=== PATIENT | male | born 1985 | race American Indian/Alaskan Native ===

== ENCOUNTER 2017-11-16 17:35 | Inpatient (IN) | payer OTHER ==
[2017-11-16] MEDS ORDERED: Sodium Chloride 0.9% 10 ML Syringe FLUSH PRN (18:15)
[2017-11-16] MEDS ORDERED: Sodium Chloride 0.9% 1,000 ML IV STA (18:15)
[2017-11-16] MEDS ORDERED: Ondansetron 4 MG/2 ML SDV IVPUSH ONE (18:15)
[2017-11-16] MEDS ORDERED: HYDROmorphone 1 MG/ML Syringe IVPUSH ONE (18:17)
[2017-11-16] MEDS ORDERED: Famotidine 20 MG/2 ML SDV IVPUSH ONE (18:18)
--- NOTE | 2017-11-16 18:23 | EDM.PDOC ---
<Rao Miranda - Last Filed: 11/16/17 20:27> ED HPI GENERAL MEDICAL PROBLEM - General Chief Complaint: Abdominal Pain Stated Complaint: ABDOMINAL PAIN Time Seen by Provider: 11/16/17 18:12 - Related Data Allergies Allergy/AdvReac Type Severity Reaction Status Date / Time No Known Allergies Allergy Verified 11/17/17 03:30 Home Meds: Home Meds Amoxicillin/Clavulanate K [Augmentin 875-125 MG] 1 tab PO Q12HR 12 Days #24 tablet 11/19/17 [Rx] Course - Vital Signs Last Recorded V/S: Last Vital Signs Temp 97.5 F 11/19/17 09:27 Pulse 73 11/19/17 09:27 Resp 20 11/19/17 09:27 BP 139/87 11/19/17 09:27 Pulse Ox 94 L 11/19/17 09:27 - Orders/Labs/Meds Labs: Laboratory Tests 11/16/17 11/16/17 11/16/17 Range/Units 17:45 18:18 18:18 WBC 15.27 H (4.23-9.07) K/mm3 RBC 5.47 (4.63-6.08) M/mm3 Hgb 15.0 (13.7-17.5) gm/L Hct 44.9 (40.1-51.0) % MCV 82.1 (79.0-92.2) fl MCH 27.4 (25.7-32.2) pg MCHC 33.4 (32.2-35.5) g/dl RDW Std Deviation 42.2 (35.1-43.9) fL Plt Count 295 (163-337) K/mm3 MPV 9.7 (9.4-12.3) fl Neut % (Auto) 85.3 H (34.0-67.9) % Lymph % (Auto) 8.6 L (21.8-53.1) % [place] % (Auto) 5.8 (5.3-12.2) % Eos % (Auto) 0.1 L (0.8-7.0) Baso % (Auto) 0.1 (0.1-1.2) % Neut # (Auto) 13.01 H (1.78-5.38) K/mm3 Lymph # (Auto) 1.31 L (1.32-3.57) K/mm3 [place] # (Auto) 0.89 H (0.30-0.82) K/mm3 Eos # (Auto) 0.02 L (0.04-0.54) K/mm3 Baso # (Auto) 0.02 (0.01-0.08) K/mm3 Manual Slide Review Normal smear Sodium 140 (136-145) mEq/L Potassium 3.8 (3.5-5.1) mEq/L Chloride 101 (98-107) mEq/L Carbon Dioxide 27 (21-32) mEq/L Anion Gap 15.8 H (5-15) BUN 7 (7-18) mg/dL Creatinine 0.9 (0.7-1.3) mg/dL Est Cr Clr Drug Dosing 127.82 mL/min Estimated GFR (MDRD) > 60 (>60) mL/min BUN/Creatinine Ratio 7.8 L (14-18) Glucose 135 H (74-106) mg/dL Calcium 8.9 (8.5-10.1) mg/dL Total Bilirubin 0.4 (0.2-1.0) mg/dL AST 26 (15-37) U/L ALT 60 (16-63) U/L Alkaline Phosphatase 78 (46-116) U/L Troponin I < 0.017 (0.00-0.056) ng/mL Total Protein 8.4 H (6.4-8.2) g/dl Albumin 3.2 L (3.4-5.0) g/dl Globulin 5.2 gm/dL Albumin/Globulin Ratio 0.6 L (1-2) Lipase 105 (73-393) U/L Urine Color Yellow (Yellow) Urine Appearance Clear (Clear) Urine pH 8.5 H (5.0-8.0) Ur Specific [place] 1.020 (1.005-1.030) Urine Protein 3+ H (Negative) Urine Glucose (UA) Negative (Negative) Urine Ketones Negative (Negative) Urine Occult Blood Negative (Negative) Urine Nitrite Negative (Negative) Urine Bilirubin Negative (Negative) Urine Urobilinogen 0.2 (0.2-1.0) Ur Leukocyte Esterase Negative (Negative) Urine RBC 0-5 (0-5) /hpf Urine WBC 0-5 (0-5) /hpf Ur Epithelial Cells 0-5 (0-5) /hpf Urine Bacteria Few (FEW) /hpf Urine Mucus Few (FEW) /hpf Meds: Medications Discontinued Medications Generic Name Dose Route Start Last Admin Trade Name Bald[place] PRN Reason Stop Dose Admin Acetaminophen 650 mg 11/18/17 08:34 Tylenol PO Q4H PRN Pain (mild 1-3) Hydrocodone Bitart/Acetaminophen 1 tab 11/18/17 08:32 [place] 325-5 Mg PO Q4H PRN Pain (moderate 4-6) Hydrocodone Bitart/Acetaminophen 1 tab 11/18/17 08:36 [place] 325-10 Mg PO Q4H PRN Pain (severe 7-10) Amoxicillin/Clavulanate Potassium 1 tab 11/19/17 09:00 11/19/17 09:36 Augmentin 875 Mg/125 Mg PO 11/30/17 21:01 1 tab Q12HR SAMIR Administration Bupivacaine HCl Confirm 11/16/17 22:07 11/16/17 23:04 Marcaine 0.5% Administered 11/16/17 22:08 10 ml Dose Administration 30 ml .ROUTE .STK-MED ONE Diatrizoate Meglum/Diatrizoate Sod 90 ml 11/16/17 19:42 11/16/17 20:01 Gastrografin 37% PO 11/16/17 19:43 90 ml ONETIME ONE Administration Diphenhydramine HCl 25 mg 11/17/17 01:16 Benadryl IVPUSH Q6H PRN Pruritis Famotidine 20 mg 11/16/17 18:18 11/16/17 18:34 Pepcid IVPUSH 11/16/17 18:19 20 mg ONETIME ONE Administration Fentanyl Confirm 11/16/17 22:17 Sublimaze Administered 11/16/17 22:18 Dose 250 mcg .ROUTE .STK-MED ONE Fentanyl Confirm 11/17/17 00:22 Sublimaze Administered 11/17/17 00:23 Dose 100 mcg .ROUTE .STK-MED ONE Glycopyrrolate Confirm 11/17/17 00:26 Administered 11/17/17 00:27 Dose 1 mg .ROUTE .STK-MED ONE Heparin Sodium (Porcine) 5,000 units 11/17/17 20:00 11/19/17 12:01 Heparin Sodium SUBCUT Not Given Q8H SAMIR Hydromorphone HCl 1 mg 11/16/17 18:17 11/16/17 18:35 Dilaudid IVPUSH 11/16/17 18:18 1 mg ONETIME ONE Administration Hydromorphone HCl 0.5 mg 11/16/17 19:14 11/16/17 19:30 Dilaudid IVPUSH 11/16/17 19:15 0.5 mg ONETIME ONE Administration Hydromorphone HCl 0.5 mg 11/16/17 20:36 11/16/17 20:42 Dilaudid IVPUSH 11/16/17 20:37 0.5 mg ONETIME ONE Administration Hydromorphone HCl Confirm 11/16/17 23:14 Dilaudid Administered 11/16/17 23:15 Dose 0.5 mg .ROUTE .STK-MED ONE Hydromorphone HCl Confirm 11/16/17 23:14 Dilaudid Administered 11/16/17 23:15 Dose 0.5 mg .ROUTE .STK-MED ONE Hydromorphone HCl 0.5 mg 11/17/17 01:16 11/17/17 09:11 Dilaudid IVPUSH 11/17/17 01:17 Not Given ONETIME ONE Hydromorphone HCl 0.5 mg 11/17/17 01:26 Dilaudid IVPUSH Q2H PRN Pain Hydromorphone HCl 0.5 mg 11/18/17 08:32 Dilaudid IVPUSH ONETIME PRN Breakthrough pain Sodium Chloride 1,000 mls @ 1,000 mls/hr 11/16/17 18:15 11/16/17 18:33 Normal Saline IV 11/16/17 19:14 1,000 mls/hr .BOLUS STA Administration Piperacillin Sod/Tazobactam 100 mls @ 200 mls/hr 11/16/17 21:46 11/16/17 21: 57 Sod 4.5 gm/ Sodium Chloride IV 11/16/17 22:15 200 mls/hr ONETIME ONE Administration Ondansetron HCl 4 mg/ Sodium 52 mls @ 100 mls/hr 11/17/17 01:26 Chloride IV Q4H PRN Nausea Piperacillin Sod/Tazobactam 100 mls @ 25 mls/hr 11/17/17 06:00 11/19/17 05:48 Sod 4.5 gm/ Sodium Chloride IV 25 mls/hr Q8H SAMIR Administration Sodium Chloride 1,000 mls @ 125 mls/hr 11/17/17 01:30 11/18/17 01:10 Normal Saline IV 125 mls/hr ASDIRECTED SAMIR Administration Piperacillin Sod/Tazobactam 100 mls @ 200 mls/hr 11/17/17 02:00 11/17/17 09: 13 Sod 4.5 gm/ Sodium Chloride IV 11/17/17 03:00 Not Given Q8H SAMIR Metoprolol Tartrate 5 mg/ 55 mls @ 100 mls/hr 11/17/17 01:33 Sodium Chloride IV Q2H PRN Hypertension Potassium Chloride/Dextrose/Sod Cl 1,000 mls @ 100 mls/hr 11/18/17 08:45 08/31 03:59 D5 1/2 Ns W/ 20 Meq/L Kcl IV 100 mls/hr ASDIRECTED SAMIR Administration Iopamidol 125 ml 11/16/17 19:42 11/16/17 20:01 Isovue-300 (61%) IVPUSH 11/16/17 19:43 125 ml ONETIME ONE Administration Ketamine HCl Confirm 11/16/17 23:15 Ketalar Administered 11/16/17 23:16 Dose 500 mg .ROUTE .STK-MED ONE Lidocaine/Epinephrine Confirm 11/16/17 22:07 11/16/17 23:04 Xylocaine 1% With Epinephrine 1:100,000 Administered 11/16/17 22:08 10 ml Dose Administration 20 ml .ROUTE .STK-MED ONE Metoprolol Tartrate 5 mg 11/18/17 08:42 Lopressor IV Q2H PRN Hypertension Midazolam HCl Confirm 11/16/17 22:17 Versed 1 Mg/Ml Administered 11/16/17 22:18 Dose 2 mg .ROUTE .STK-MED ONE Neostigmine Methylsulfate Confirm 11/17/17 00:26 Neostigmine Administered 11/17/17 00:27 Dose 5 mg .ROUTE .STK-MED ONE Ondansetron HCl 4 mg 11/16/17 18:15 11/16/17 18:33 Zofran IVPUSH 11/16/17 18:16 4 mg ONETIME ONE Administration Ondansetron HCl 4 mg 11/16/17 19:18 11/16/17 19:30 Zofran Odt PO 11/16/17 19:19 4 mg ONETIME ONE Administration Ondansetron HCl 4 mg 11/17/17 01:16 Zofran IVPUSH ONETIME PRN Nausea/Vomiting Ondansetron HCl 4 mg 11/18/17 08:41 Zofran IV Q4H PRN Nausea Pneumococcal 13-Valent Conj Vacc 0.5 ml 11/19/17 10:48 Prevnar 13 IM 11/19/17 10:49 .ONCE ONE Pneumococcal Polyvalent Vaccine 0.5 ml 11/19/17 11:00 11/19/17 11:23 Pneumovax 23 IM 11/19/17 11:01 0.5 ml .ONCE ONE Administration Propofol Confirm 11/16/17 22:17 Diprivan 20 Ml Administered 11/16/17 22:18 Dose 400 mg .ROUTE .STK-MED ONE Rocuronium [place] Confirm 11/16/17 23:24 Zemuron Administered 11/16/17 23:25 Dose 50 mg .ROUTE .STK-MED ONE Sodium Chloride 10 ml 11/16/17 18:15 11/16/17 18:35 Saline Flush FLUSH 10 ml ASDIRECTED PRN Administration Keep Vein Open Sodium Chloride 10 ml 11/16/17 19:42 11/16/17 20:01 Saline Flush FLUSH 11/16/17 19:43 10 ml ONETIME ONE Administration - Radiology Interpretation CT Results Date: 11/16/17 (Reviewed the CT scan with radiologist atrophy read and describes a acute appendicitis. Measures 13 mm with some inflammatory changes, no abscess or free fluid. No other acute findings.) - Re-Assessments/Exams Free Text/Narrative Re-Assessment/Exam: 11/16/17 19:44 Took over the care of the patient at the change of shift. Patient describes having had onset of rapid gastric and periumbilical abdominal pain starting last evening. Didn't sleep through the night and tried some [place] plus without relief. Has had some vomiting today. No bloody vomiting or bloody emesis. 2 small normal bowel movements. His white count is elevated 15,000, his lipase is normal, LFTs are normal. Awaiting his CT scan. Patient has received IV fluids, Dilaudid and Zofran. His EKG was done earlier and showed sinus rhythm rate of 90 ID interval 177 ms converses 101 ms, no acute ischemic changes noted. Doubt acute coronary syndrome, seems less likely pulmonary etiology rule out for gastritis, biliary colic, cholecystitis, colitis. Free Text/Narrative Re-Assessment/Exam: 11/16/17 20:[address] scan results with the patient family and recommend surgery consult and/or operation. Discussed case with Dr. Henry abalone processor for general surgery and will be in to evaluate the patient. Patient will be otherwise kept nothing by mouth. Patient's pain is stable Departure - Departure Time of Disposition: 20:26 Disposition: DC/Tfer to [facility] Condition: Fair Clinical Impression: Abdominal pain Qualifiers: Abdominal location: generalized Qualified Code(s): R10.84 - Generalized abdominal pain Leukocytosis, unspecified Qualifiers: Leukocytosis type: other Qualified Code(s): D72.828 - Other elevated white blood cell count Acute appendicitis Qualifiers: Acute appendicitis type: with localized peritonitis Qualified Code(s): K35.3 - Acute appendicitis with localized peritonitis - Discharge Information <Heladio Marti - Last Filed: 11/19/17 19:01> ED HPI GENERAL MEDICAL PROBLEM - General Source of Information: Reports: Patient History Limitations: Reports: No Limitations - History of Present Illness INITIAL COMMENTS - FREE TEXT/NARRATIVE: The patient presents with abdominal pain. He says this started last night and it went away for a short time and came back this morning and now it is worse. He says the pain is in the mid to upper abdomen and it radiates to his chest. He has nausea and vomiting with it. He has no diarrhea or dysuria. He has no shortness of breath, fever or chills. He still has his appendix and gallbladder. Onset: Gradual Duration: Day(s): (Last night) Location: Reports: Abdomen Quality: Reports: Burning, Sharp Severity: Severe Improves with: Reports: None Worsens with: Reports: None Associated Symptoms: Reports: Nausea/Vomiting. Denies: Chest Pain, Cough, Fever /Chills, Headaches, Shortness of Breath Middle Abdomen Pain Score (Numeric/FACES): 9 ED ROS GENERAL - Review of Systems Review Of Systems: See Below Constitutional: Reports: No Symptoms HEENT: Reports: No Symptoms Respiratory: Reports: No Symptoms Cardiovascular: Reports: No Symptoms Endocrine: Reports: No Symptoms GI/Abdominal: Reports: Abdominal Pain, Nausea, Vomiting. Denies: Diarrhea : Reports: No Symptoms Musculoskeletal: Reports: No Symptoms Skin: Reports: No Symptoms ED EXAM, GI/ABD - Physical Exam Exam: See Below Exam Limited By: No Limitations General Appearance: Alert, No Apparent Distress Ears: Normal External Exam Nose: Normal Inspection Head: Atraumatic, Normocephalic Neck: Normal Inspection Respiratory/Chest: No Respiratory Distress, Lungs Clear, Normal Breath Sounds Cardiovascular: Regular Rate, Rhythm, No Edema, No Murmur GI/Abdominal Exam: Soft, No Organomegaly, No Mass, Tender (Moderate tenderness to the mid abdomen to the epigastric area) EKG INTERPRETATION EKG Date: 11/16/17 Time: 17:54 Rhythm: NSR Rate (Beats/Min): 90 [place]: Normal P-Wave: Present QRS: Normal ST-T: Normal QT: Normal Course - Vital Signs Last Recorded V/S: Last Vital Signs Temp 97.5 F 11/19/17 09:27 Pulse 73 11/19/17 09:27 Resp 20 11/19/17 09:27 BP 139/87 11/19/17 09:27 Pulse Ox 94 L 11/19/17 09:27 - Orders/Labs/Meds Labs: Laboratory Tests 11/16/17 11/16/17 11/16/17 Range/Units 17:45 18:18 18:18 WBC 15.27 H (4.23-9.07) K/mm3 RBC 5.47 (4.63-6.08) M/mm3 Hgb 15.0 (13.7-17.5) gm/L Hct 44.9 (40.1-51.0) % MCV 82.1 (79.0-92.2) fl MCH 27.4 (25.7-32.2) pg MCHC 33.4 (32.2-35.5) g/dl RDW Std Deviation 42.2 (35.1-43.9) fL Plt Count 295 (163-337) K/mm3 MPV 9.7 (9.4-12.3) fl Neut % (Auto) 85.3 H (34.0-67.9) % Lymph % (Auto) 8.6 L (21.8-53.1) % [place] % (Auto) 5.8 (5.3-12.2) % Eos % (Auto) 0.1 L (0.8-7.0) Baso % (Auto) 0.1 (0.1-1.2) % Neut # (Auto) 13.01 H (1.78-5.38) K/mm3 Lymph # (Auto) 1.31 L (1.32-3.57) K/mm3 [place] # (Auto) 0.89 H (0.30-0.82) K/mm3 Eos # (Auto) 0.02 L (0.04-0.54) K/mm3 Baso # (Auto) 0.02 (0.01-0.08) K/mm3 Manual Slide Review Normal smear Sodium 140 (136-145) mEq/L Potassium 3.8 (3.5-5.1) mEq/L Chloride 101 (98-107) mEq/L Carbon Dioxide 27 (21-32) mEq/L Anion Gap 15.8 H (5-15) BUN 7 (7-18) mg/dL Creatinine 0.9 (0.7-1.3) mg/dL Est Cr Clr Drug Dosing 127.82 mL/min Estimated GFR (MDRD) > 60 (>60) mL/min BUN/Creatinine Ratio 7.8 L (14-18) Glucose 135 H (74-106) mg/dL Calcium 8.9 (8.5-10.1) mg/dL Total Bilirubin 0.4 (0.2-1.0) mg/dL AST 26 (15-37) U/L ALT 60 (16-63) U/L Alkaline Phosphatase 78 (46-116) U/L Troponin I < 0.017 (0.00-0.056) ng/mL Total Protein 8.4 H (6.4-8.2) g/dl Albumin 3.2 L (3.4-5.0) g/dl Globulin 5.2 gm/dL Albumin/Globulin Ratio 0.6 L (1-2) Lipase 105 (73-393) U/L Urine Color Yellow (Yellow) Urine Appearance Clear (Clear) Urine pH 8.5 H (5.0-8.0) Ur Specific [place] 1.020 (1.005-1.030) Urine Protein 3+ H (Negative) Urine Glucose (UA) Negative (Negative) Urine Ketones Negative (Negative) Urine Occult Blood Negative (Negative) Urine Nitrite Negative (Negative) Urine Bilirubin Negative (Negative) Urine Urobilinogen 0.2 (0.2-1.0) Ur Leukocyte Esterase Negative (Negative) Urine RBC 0-5 (0-5) /hpf Urine WBC 0-5 (0-5) /hpf Ur Epithelial Cells 0-5 (0-5) /hpf Urine Bacteria Few (FEW) /hpf Urine Mucus Few (FEW) /hpf Meds: Medications Discontinued Medications Generic Name Dose Route Start Last Admin Trade Name Freq PRN Reason Stop Dose Admin Acetaminophen 650 mg 11/18/17 08:34 Tylenol PO Q4H PRN Pain (mild 1-3) Hydrocodone Bitart/Acetaminophen 1 tab 11/18/17 08:32 [place] 325-5 Mg PO Q4H PRN Pain (moderate 4-6) Hydrocodone Bitart/Acetaminophen 1 tab 11/18/17 08:36 [place] 325-10 Mg PO Q4H PRN Pain (severe 7-10) Amoxicillin/Clavulanate Potassium 1 tab 11/19/17 09:00 11/19/17 09:36 Augmentin 875 Mg/125 Mg PO 11/30/17 21:01 1 tab Q12HR SAMIR Administration Bupivacaine HCl Confirm 11/16/17 22:07 11/16/17 23:04 Marcaine 0.5% Administered 11/16/17 22:08 10 ml Dose Administration 30 ml .ROUTE .STK-MED ONE Diatrizoate Meglum/Diatrizoate Sod 90 ml 11/16/17 19:42 11/16/17 20:01 Gastrografin 37% PO 11/16/17 19:43 90 ml ONETIME ONE Administration Diphenhydramine HCl 25 mg 11/17/17 01:16 Benadryl IVPUSH Q6H PRN Pruritis Famotidine 20 mg 11/16/17 18:18 11/16/17 18:34 Pepcid IVPUSH 11/16/17 18:19 20 mg ONETIME ONE Administration Fentanyl Confirm 11/16/17 22:17 Sublimaze Administered 11/16/17 22:18 Dose 250 mcg .ROUTE .STK-MED ONE Fentanyl Confirm 11/17/17 00:22 Sublimaze Administered 11/17/17 00:23 Dose 100 mcg .ROUTE .STK-MED ONE Glycopyrrolate Confirm 11/17/17 00:26 Administered 11/17/17 00:27 Dose 1 mg .ROUTE .STK-MED ONE Heparin Sodium (Porcine) 5,000 units 11/17/17 20:00 11/19/17 12:01 Heparin Sodium SUBCUT Not Given Q8H SAMIR Hydromorphone HCl 1 mg 11/16/17 18:17 11/16/17 18:35 Dilaudid IVPUSH 11/16/17 18:18 1 mg ONETIME ONE Administration Hydromorphone HCl 0.5 mg 11/16/17 19:14 11/16/17 19:30 Dilaudid IVPUSH 11/16/17 19:15 0.5 mg ONETIME ONE Administration Hydromorphone HCl 0.5 mg 11/16/17 20:36 11/16/17 20:42 Dilaudid IVPUSH 11/16/17 20:37 0.5 mg ONETIME ONE Administration Hydromorphone HCl Confirm 11/16/17 23:14 Dilaudid Administered 11/16/17 23:15 Dose 0.5 mg .ROUTE .STK-MED ONE Hydromorphone HCl Confirm 11/16/17 23:14 Dilaudid Administered 11/16/17 23:15 Dose 0.5 mg .ROUTE .STK-MED ONE Hydromorphone HCl 0.5 mg 11/17/17 01:16 11/17/17 09:11 Dilaudid IVPUSH 11/17/17 01:17 Not Given ONETIME ONE Hydromorphone HCl 0.5 mg 11/17/17 01:26 Dilaudid IVPUSH Q2H PRN Pain Hydromorphone HCl 0.5 mg 11/18/17 08:32 Dilaudid IVPUSH ONETIME PRN Breakthrough pain Sodium Chloride 1,000 mls @ 1,000 mls/hr 11/16/17 18:15 11/16/17 18:33 Normal Saline IV 11/16/17 19:14 1,000 mls/hr .BOLUS STA Administration Piperacillin Sod/Tazobactam 100 mls @ 200 mls/hr 11/16/17 21:46 11/16/17 21: 57 Sod 4.5 gm/ Sodium Chloride IV 11/16/17 22:15 200 mls/hr ONETIME ONE Administration Ondansetron HCl 4 mg/ Sodium 52 mls @ 100 mls/hr 11/17/17 01:26 Chloride IV Q4H PRN Nausea Piperacillin Sod/Tazobactam 100 mls @ 25 mls/hr 11/17/17 06:00 11/19/17 05:48 Sod 4.5 gm/ Sodium Chloride IV 25 mls/hr Q8H SAMIR Administration Sodium Chloride 1,000 mls @ 125 mls/hr 11/17/17 01:30 11/18/17 01:10 Normal Saline IV 125 mls/hr ASDIRECTED SAMIR Administration Piperacillin Sod/Tazobactam 100 mls @ 200 mls/hr 11/17/17 02:00 11/17/17 09: 13 Sod 4.5 gm/ Sodium Chloride IV 11/17/17 03:00 Not Given Q8H SAMIR Metoprolol Tartrate 5 mg/ 55 mls @ 100 mls/hr 11/17/17 01:33 Sodium Chloride IV Q2H PRN Hypertension Potassium Chloride/Dextrose/Sod Cl 1,000 mls @ 100 mls/hr 11/18/17 08:45 08/31 03:59 D5 1/2 Ns W/ 20 Meq/L Kcl IV 100 mls/hr ASDIRECTED SAMIR Administration Iopamidol 125 ml 11/16/17 19:42 11/16/17 20:01 Isovue-300 (61%) IVPUSH 11/16/17 19:43 125 ml ONETIME ONE Administration Ketamine HCl Confirm 11/16/17 23:15 Ketalar Administered 11/16/17 23:16 Dose 500 mg .ROUTE .STK-MED ONE Lidocaine/Epinephrine Confirm 11/16/17 22:07 11/16/17 23:04 Xylocaine 1% With Epinephrine 1:100,000 Administered 11/16/17 22:08 10 ml Dose Administration 20 ml .ROUTE .STK-MED ONE Metoprolol Tartrate 5 mg 11/18/17 08:42 Lopressor IV Q2H PRN Hypertension Midazolam HCl Confirm 11/16/17 22:17 Versed 1 Mg/Ml Administered 11/16/17 22:18 Dose 2 mg .ROUTE .STK-MED ONE Neostigmine Methylsulfate Confirm 11/17/17 00:26 Neostigmine Administered 11/17/17 00:27 Dose 5 mg .ROUTE .STK-MED ONE Ondansetron HCl 4 mg 11/16/17 18:15 11/16/17 18:33 Zofran IVPUSH 11/16/17 18:16 4 mg ONETIME ONE Administration Ondansetron HCl 4 mg 11/16/17 19:18 11/16/17 19:30 Zofran Odt PO 11/16/17 19:19 4 mg ONETIME ONE Administration Ondansetron HCl 4 mg 11/17/17 01:16 Zofran IVPUSH ONETIME PRN Nausea/Vomiting Ondansetron HCl 4 mg 11/18/17 08:41 Zofran IV Q4H PRN Nausea Pneumococcal 13-Valent Conj Vacc 0.5 ml 11/19/17 10:48 Prevnar 13 IM 11/19/17 10:49 .ONCE ONE Pneumococcal Polyvalent Vaccine 0.5 ml 11/19/17 11:00 11/19/17 11:23 Pneumovax 23 IM 11/19/17 11:01 0.5 ml .ONCE ONE Administration Propofol Confirm 11/16/17 22:17 Diprivan 20 Ml Administered 11/16/17 22:18 Dose 400 mg .ROUTE .STK-MED ONE Rocuronium [place] Confirm 11/16/17 23:24 Zemuron Administered 11/16/17 23:25 Dose 50 mg .ROUTE .STK-MED ONE Sodium Chloride 10 ml 11/16/17 18:15 11/16/17 18:35 Saline Flush FLUSH 10 ml ASDIRECTED PRN Administration Keep Vein Open Sodium Chloride 10 ml 11/16/17 19:42 11/16/17 20:01 Saline Flush FLUSH 11/16/17 19:43 10 ml ONETIME ONE Administration - Re-Assessments/Exams Free Text/Narrative Re-Assessment/Exam: 11/16/17 18:24 I ordered an IV NS 1L bolus, zofran 4mg IV, dilaudid 1mg IV, labs, UA and a CT of his abdomen and pelvis. 11/16/17 19:18 His EKG shows a NSR with no acute changes. His WBC was elevated to 15. His CMP looks good. His troponin is negative. His UA shows no UTI. I am awaiting the CT of his abdomen. It is change of shift. Dr Miranda will be taking over.
[2017-11-16] MEDS ORDERED: HYDROmorphone 0.5 MG/0.5 ML SYRINGE IVPUSH ONE ×2 (19:14→20:36)
[2017-11-16] MEDS ORDERED: Ondansetron 4 MG Tab.DIS PO ONE (19:18)
[2017-11-16] MEDS ORDERED: Diatrizoate Meglumine/Diatrizoate Sodium 37% 120 ML Bottle PO ONE (19:42)
[2017-11-16] MEDS ORDERED: Iopamidol 612 MG/ML 150 ML Bottle IVPUSH ONE (19:42)
[2017-11-16] MEDS ORDERED: Sodium Chloride 0.9% 10 ML Syringe FLUSH ONE (19:42)
[2017-11-16] MEDS ORDERED: Piperacillin/Tazobactam 4.5 GM in Sodium Chloride 0.9% 100 ML IV ONE (21:46)
--- NOTE | 2017-11-16 21:49 | PCM.HP ---
H&P History of Present Illness - General Date of Service: 11/16/17 Admit Problem/Dx: acute appendicitis - History of Present Illness Initial Comments - Free Text/Narative: 32 yo male, h/o morbid obesity, presents with abdominal pain for the past 24 hours, which started about 24 hours ago. Pain was located in the mid-abdomen, and it has remained in the mid-abdomen. He also had multiple episodes of nausea/ emesis. No prior episode of pain. No prior abdominal surgeries. Denies fevers/chills. No diarrhea/constipation. In the ER, the patient received multiple doses of IV Dilaudid, Zofran, and a NS bolus. Middle Abdomen Pain Score (Numeric/FACES): 9 - Related Data Allergies/Adverse Reactions: Allergies Allergy/AdvReac Type Severity Reaction Status Date / Time No Known Allergies Allergy Verified 11/16/17 18:13 Home Medications: Home Meds . [No Known Home Meds] 11/16/17 [History] Past Medical History Endocrine/Metabolic History: Reports: Obesity/BMI 30+ (Severe obesity (BMI 56)) - Past Surgical History Head Surgeries/Procedures: Reports: None Social & Family History - Family History Endocrine/Metabolic: Reports: Diabetes, type II (Father) - Tobacco Use Smoking Status *Q: Current Every Day Smoker (5 cigarettes/week) Years of Tobacco use: 14 Packs/Tins Daily: 1 - Caffeine Use Caffeine Use: Reports: Coffee - Alcohol Use Alcohol Use History: Yes Total Drinks Per Week Comment: 7 drinks/week - Recreational Drug Use Recreational Drug Use: No - Living Situation & Occupation Living situation: Reports: with Significant Other (has girlfriend), with Family (Lives with his children.) H&P Review of Systems - Review of Systems: Review Of Systems: See Below General: Reports: No Symptoms HEENT: Reports: No Symptoms Pulmonary: Reports: No Symptoms Cardiovascular: Reports: No Symptoms Genitourinary: Reports: No Symptoms Musculoskeletal: Reports: No Symptoms Skin: Reports: No Symptoms Psychiatric: Reports: No Symptoms Neurological: Reports: No Symptoms Hematologic/Lymphatic: Reports: No Symptoms. Denies: Easy Bleeding, Easy Bruising Immunologic: Reports: No Symptoms Exam - Exam Exam: See Below - Vital Signs Vital Signs: Last Vital Signs Temp 37.0 C 11/16/17 18:20 Pulse 90 11/16/17 18:20 Resp 40 H 11/16/17 18:20 BP 164/92 H 11/16/17 18:20 Pulse Ox 93 L 11/16/17 18:20 Weight: 181.437 kg - Exam General: Alert, Oriented, Cooperative, Lethargic (Slightly lethargic and was falling asleep during clinical interview.), Other (OBESE.) HEENT: Conjunctiva Clear, Hearing Intact Neck: Supple, Trachea Midline, Other (Thick neck) Lungs: Clear to Auscultation, Normal Respiratory Effort Cardiovascular: Regular Rate, Regular Rhythm, Normal S1, Normal S2. No: Systolic Murmur GI/Abdominal Exam: Soft, Tender (Tender to the mid-abdomen.), Other (severely obese.) Extremities: Normal Inspection Skin: Warm, Dry, Intact Neuro Extensive - Mental Status: Alert, Normal Mood/Affect, Normal Cognition, Memory Intact Psychiatric: Alert, Normal Affect, Normal Mood - Patient Data Lab Results Last 24 hrs: Laboratory Results - last 24 hr 11/16/17 11/16/17 11/16/17 Range/Units 17:45 18:18 18:18 WBC 15.27 H (4.23-9.07) K/mm3 RBC 5.47 (4.63-6.08) M/mm3 Hgb 15.0 (13.7-17.5) gm/L Hct 44.9 (40.1-51.0) % MCV 82.1 (79.0-92.2) fl MCH 27.4 (25.7-32.2) pg MCHC 33.4 (32.2-35.5) g/dl RDW Std Deviation 42.2 (35.1-43.9) fL Plt Count 295 (163-337) K/mm3 MPV 9.7 (9.4-12.3) fl Neut % (Auto) 85.3 H (34.0-67.9) % Lymph % (Auto) 8.6 L (21.8-53.1) % [place] % (Auto) 5.8 (5.3-12.2) % Eos % (Auto) 0.1 L (0.8-7.0) Baso % (Auto) 0.1 (0.1-1.2) % Neut # (Auto) 13.01 H (1.78-5.38) K/mm3 Lymph # (Auto) 1.31 L (1.32-3.57) K/mm3 [place] # (Auto) 0.89 H (0.30-0.82) K/mm3 Eos # (Auto) 0.02 L (0.04-0.54) K/mm3 Baso # (Auto) 0.02 (0.01-0.08) K/mm3 Manual Slide Review Normal smear Sodium 140 (136-145) mEq/L Potassium 3.8 (3.5-5.1) mEq/L Chloride 101 (98-107) mEq/L Carbon Dioxide 27 (21-32) mEq/L Anion Gap 15.8 H (5-15) BUN 7 (7-18) mg/dL Creatinine 0.9 (0.7-1.3) mg/dL Est Cr Clr Drug Dosing 127.82 mL/min Estimated GFR (MDRD) > 60 (>60) mL/min BUN/Creatinine Ratio 7.8 L (14-18) Glucose 135 H (74-106) mg/dL Calcium 8.9 (8.5-10.1) mg/dL Total Bilirubin 0.4 (0.2-1.0) mg/dL AST 26 (15-37) U/L ALT 60 (16-63) U/L Alkaline Phosphatase 78 (46-116) U/L Troponin I < 0.017 (0.00-0.056) ng/mL Total Protein 8.4 H (6.4-8.2) g/dl Albumin 3.2 L (3.4-5.0) g/dl Globulin 5.2 gm/dL Albumin/Globulin Ratio 0.6 L (1-2) Lipase 105 (73-393) U/L Urine Color Yellow (Yellow) Urine Appearance Clear (Clear) Urine pH 8.5 H (5.0-8.0) Ur Specific [place] 1.020 (1.005-1.030) Urine Protein 3+ H (Negative) Urine Glucose (UA) Negative (Negative) Urine Ketones Negative (Negative) Urine Occult Blood Negative (Negative) Urine Nitrite Negative (Negative) Urine Bilirubin Negative (Negative) Urine Urobilinogen 0.2 (0.2-1.0) Ur Leukocyte Esterase Negative (Negative) Urine RBC 0-5 (0-5) /hpf Urine WBC 0-5 (0-5) /hpf Ur Epithelial Cells 0-5 (0-5) /hpf Urine Bacteria Few (FEW) /hpf Urine Mucus Few (FEW) /hpf Result Diagrams: 11/16/17 18:18 11/16/17 18:18 Imaging Impressions Last 24 hrs: CT scan Abd/Pelvis with PO/IV contrast: Dilated appendix with surrounding inflammatory changes. Problem List Initiated/Reviewed/Updated: Yes Orders Last 24hrs: Active Orders 24 hr Category Date Time Status EKG Documentation Completion [RC] STAT Care 11/16/17 18:15 Active Notify Provider Consults [RC] ASDIRECTED Care 11/16/17 20:25 Active Peripheral IV Care [RC] . DIRECTED Care 11/16/17 18:15 Active Consult to Physician [CONS] Stat Cons 11/16/17 20:24 Active Abdomen Pelvis w Cont [CT] Stat Exams 11/16/17 18:15 Taken UA W/MICROSCOPIC [URIN] Stat Lab 11/16/17 17:45 Ordered Sodium Chloride 0.9% [Saline Flush] Med 11/16/17 18:15 Active 10 ml FLUSH ASDIRECTED PRN ED Antiemetic Medication Reflex [OM.PC] Stat Oth 11/16/17 18:16 Ordered Peripheral IV Insertion Adult [OM.PC] Stat Oth 11/16/17 18:15 Ordered Schedule Procedure [COMM] Stat Oth 11/16/17 21:38 Ordered Medication Orders Sodium Chloride (Saline Flush) 10 ml FLUSH ASDIRECTED PRN PRN Reason: Keep Vein Open Last Admin: 11/16/17 18:35 Dose: 10 ml Assessment/Plan Comment:: 32 yo male, h/o severe obesity (BMI 56), presents with acute appendicitis. CT scan report by radiologist was reviewed. The actual images were also reviewed. - NPO, IV fluids. - IV Zosyn. - Admit for surgery. - The patient was consented for laparoscopic appendectomy, possible open, possible other indicated procedures. Indications, risks, and benefits were discussed with the patient in detail. Risks include bleeding, infection, damage to surrounding structures, need for additional procedures, DVT/PE, AR, CVA, and . Explained that these risks are more elevated due to the patient's severe obesity. Discussed the possible need for bowel resection if the inflammation involves other segments of bowel. This would prolong his recovery time. He designates his girlfriend to be notified of his clinical status. Ras Reno M.D., F.A.C.S. General Surgery Pager: [phone]
[2017-11-16] MEDS ORDERED: Lidocaine 1% with EPINEPHrine 1:100,000 20 ML MDV ONE (22:07)
[2017-11-16] MEDS ORDERED: Bupivacaine 0.5% 30 ML SDV ONE (22:07)
--- NOTE | 2017-11-16 22:12 | PCM.PREANE ---
Preanesthetic Assessment - Procedure Proposed Procedure: Lap APPY - Anesthesia/Transfusion/Family Hx Anesthesia History: No Prior Anesthesia Family History of Anesthesia Reaction: No Transfusion History: No Prior Transfusion(s) - Review of Systems General: No Symptoms Pulmonary: No Symptoms Cardiovascular: No Symptoms Gastrointestinal: Abdominal Pain (since yesterday), Diarrhea, Nausea, Vomiting ( about 1300 last vomit ) Neurological: No Symptoms Other: Reports: None - Physical Assessment NPO Status Date: 11/16/17 NPO Status Time: 07:00 O2 Sat by Pulse Oximetry: 93 Respiratory Rate: 40 Vital Signs: Last Vital Signs Temp 37.0 C 11/16/17 18:20 Pulse 90 11/16/17 18:20 Resp 40 H 11/16/17 18:20 BP 164/92 H 11/16/17 18:20 Pulse Ox 93 L 11/16/17 18:20 Height: 1.8 m Weight: 181.437 kg ASA Class: 2E Mental Status: Alert & Oriented x3 Airway Class: Mallampati = 3 Dentition: Reports: Broken Tooth/Teeth (bottom left molar ) Thyro-Mental Finger Breadths: 3 Mouth Opening Finger Breadths: 3 ROM/Head Extension: Full Lungs: Clear to Auscultation, Normal Respiratory Effort Cardiovascular: Regular Rate, Regular Rhythm - Lab Values: Laboratory Last Values WBC 15.27 K/mm3 (4.23-9.07) H 11/16/17 18:18 RBC 5.47 M/mm3 (4.63-6.08) 11/16/17 18:18 Hgb 15.0 gm/L (13.7-17.5) 11/16/17 18:18 Hct 44.9 % (40.1-51.0) 11/16/17 18:18 MCV 82.1 fl (79.0-92.2) 11/16/17 18:18 MCH 27.4 pg (25.7-32.2) 11/16/17 18:18 MCHC 33.4 g/dl (32.2-35.5) 11/16/17 18:18 RDW Std Deviation 42.2 fL (35.1-43.9) 11/16/17 18:18 Plt Count 295 K/mm3 (163-337) 11/16/17 18:18 MPV 9.7 fl (9.4-12.3) 11/16/17 18:18 Neut % (Auto) 85.3 % (34.0-67.9) H 11/16/17 18:18 Lymph % (Auto) 8.6 % (21.8-53.1) L 11/16/17 18:18 [place] % (Auto) 5.8 % (5.3-12.2) 11/16/17 18:18 Eos % (Auto) 0.1 (0.8-7.0) L 11/16/17 18:18 Baso % (Auto) 0.1 % (0.1-1.2) 11/16/17 18:18 Neut # (Auto) 13.01 K/mm3 (1.78-5.38) H 11/16/17 18:18 Lymph # (Auto) 1.31 K/mm3 (1.32-3.57) L 11/16/17 18:18 [place] # (Auto) 0.89 K/mm3 (0.30-0.82) H 11/16/17 18:18 Eos # (Auto) 0.02 K/mm3 (0.04-0.54) L 11/16/17 18:18 Baso # (Auto) 0.02 K/mm3 (0.01-0.08) 11/16/17 18:18 Manual Slide Review Normal smear 11/16/17 18:18 Sodium 140 mEq/L (136-145) 11/16/17 18:18 Potassium 3.8 mEq/L (3.5-5.1) 11/16/17 18:18 Chloride 101 mEq/L (98-107) 11/16/17 18:18 Carbon Dioxide 27 mEq/L (21-32) 11/16/17 18:18 Anion Gap 15.8 (5-15) H 11/16/17 18:18 BUN 7 mg/dL (7-18) 11/16/17 18:18 Creatinine 0.9 mg/dL (0.7-1.3) 11/16/17 18:18 Est Cr Clr Drug Dosing 127.82 mL/min 11/16/17 18:18 Estimated GFR (MDRD) > 60 mL/min (>60) 11/16/17 18:18 BUN/Creatinine Ratio 7.8 (14-18) L 11/16/17 18:18 Glucose 135 mg/dL (74-106) H 11/16/17 18:18 Calcium 8.9 mg/dL (8.5-10.1) 11/16/17 18:18 Total Bilirubin 0.4 mg/dL (0.2-1.0) 11/16/17 18:18 AST 26 U/L (15-37) 11/16/17 18:18 ALT 60 U/L (16-63) 11/16/17 18:18 Alkaline Phosphatase 78 U/L (46-116) 11/16/17 18:18 Troponin I < 0.017 ng/mL (0.00-0.056) 11/16/17 18:18 Total Protein 8.4 g/dl (6.4-8.2) H 11/16/17 18:18 Albumin 3.2 g/dl (3.4-5.0) L 11/16/17 18:18 Globulin 5.2 gm/dL 11/16/17 18:18 Albumin/Globulin Ratio 0.6 (1-2) L 11/16/17 18:18 Lipase 105 U/L (73-393) 11/16/17 18:18 Urine Color Yellow (Yellow) 11/16/17 17:45 Urine Appearance Clear (Clear) 11/16/17 17:45 Urine pH 8.5 (5.0-8.0) H 11/16/17 17:45 Ur Specific [place] 1.020 (1.005-1.030) 11/16/17 17:45 Urine Protein 3+ (Negative) H 11/16/17 17:45 Urine Glucose (UA) Negative (Negative) 11/16/17 17:45 Urine Ketones Negative (Negative) 11/16/17 17:45 Urine Occult Blood Negative (Negative) 11/16/17 17:45 Urine Nitrite Negative (Negative) 11/16/17 17:45 Urine Bilirubin Negative (Negative) 11/16/17 17:45 Urine Urobilinogen 0.2 (0.2-1.0) 11/16/17 17:45 Ur Leukocyte Esterase Negative (Negative) 11/16/17 17:45 Urine RBC 0-5 /hpf (0-5) 11/16/17 17:45 Urine WBC 0-5 /hpf (0-5) 11/16/17 17:45 Ur Epithelial Cells 0-5 /hpf (0-5) 11/16/17 17:45 Urine Bacteria Few /hpf (FEW) 11/16/17 17:45 Urine Mucus Few /hpf (FEW) 11/16/17 17:45 - Allergies Allergies/Adverse Reactions: Allergies Allergy/AdvReac Type Severity Reaction Status Date / Time No Known Allergies Allergy Verified 11/16/17 18:13 - Blood Blood Available: No Product(s) Available: None - Anesthesia Plan Pre-Op Medication Ordered: None - Acknowledgements Anesthesia Type Planned: General Anesthesia Pt an Appropriate Candidate for the Planned Anesthesia: Yes Alternatives and Risks of Anesthesia Discussed w Pt/Guardian: Yes Pt/Guardian Understands and Agrees with Anesthesia Plan: Yes PreAnesthesia Questionnaire - Past Health History Medical/Surgical History: Denies Medical/Surgical History Endocrine/Metabolic History: Reports: Obesity/BMI 30+ (Severe obesity (BMI 56)) - Past Surgical History Head Surgeries/Procedures: Reports: None - SUBSTANCE USE Smoking Status *Q: Current Some Day Smoker (5 cigarettes/week) Tobacco Use Within Last Twelve Months: Cigarettes Second Hand Smoke Exposure: No Days Per Week of Alcohol Use: 2 Number of Drinks Per Day: 4 Total Drinks Per Week: 8 Recreational Drug Use History: No - HOME MEDS Home Medications: Home Meds . [No Known Home Meds] 11/16/17 [History] - CURRENT (IN HOUSE) MEDS Current Meds: Current Medications Piperacillin Sod/Tazobactam (Sod 4.5 gm/ Sodium Chloride) 100 mls @ 200 mls/hr IV ONETIME ONE Stop: 11/16/17 22:15 Last Admin: 11/16/17 21:57 Dose: 200 mls/hr Sodium Chloride (Saline Flush) 10 ml FLUSH ASDIRECTED PRN PRN Reason: Keep Vein Open Last Admin: 11/16/17 18:35 Dose: 10 ml Discontinued Medications Diatrizoate Meglum/Diatrizoate Sod (Gastrografin 37%) 90 ml PO ONETIME ONE Stop: 11/16/17 19:43 Last Admin: 11/16/17 20:01 Dose: 90 ml Famotidine (Pepcid) 20 mg IVPUSH ONETIME ONE Stop: 11/16/17 18:19 Last Admin: 11/16/17 18:34 Dose: 20 mg Hydromorphone HCl (Dilaudid) 1 mg IVPUSH ONETIME ONE Stop: 11/16/17 18:18 Last Admin: 11/16/17 18:35 Dose: 1 mg Hydromorphone HCl (Dilaudid) 0.5 mg IVPUSH ONETIME ONE Stop: 11/16/17 19:15 Last Admin: 11/16/17 19:30 Dose: 0.5 mg Hydromorphone HCl (Dilaudid) 0.5 mg IVPUSH ONETIME ONE Stop: 11/16/17 20:37 Last Admin: 11/16/17 20:42 Dose: 0.5 mg Sodium Chloride (Normal Saline) 1,000 mls @ 1,000 mls/hr IV .BOLUS STA Stop: 11/16/17 19:14 Last Admin: 11/16/17 18:33 Dose: 1,000 mls/hr Iopamidol (Isovue-300 (61%)) 125 ml IVPUSH ONETIME ONE Stop: 11/16/17 19:43 Last Admin: 11/16/17 20:01 Dose: 125 ml Ondansetron HCl (Zofran) 4 mg IVPUSH ONETIME ONE Stop: 11/16/17 18:16 Last Admin: 11/16/17 18:33 Dose: 4 mg Ondansetron HCl (Zofran Odt) 4 mg PO ONETIME ONE Stop: 11/16/17 19:19 Last Admin: 11/16/17 19:30 Dose: 4 mg Sodium Chloride (Saline Flush) 10 ml FLUSH ONETIME ONE Stop: 11/16/17 19:43 Last Admin: 11/16/17 20:01 Dose: 10 ml
[2017-11-16] MEDS ORDERED: Propofol 200 MG/20 ML SDV ONE (22:17)
[2017-11-16] MEDS ORDERED: Midazolam 1 MG/ML 2 ML SDV ONE (22:17)
[2017-11-16] MEDS ORDERED: fentaNYL 250 MCG/5 ML SDV ONE (22:17)
[2017-11-16] MEDS ORDERED: HYDROmorphone 0.5 MG/0.5 ML Syringe ONE ×2 (23:14)
[2017-11-16] MEDS ORDERED: Ketamine 500 mg/10 ML MDV ONE (23:15)
[2017-11-16] MEDS ORDERED: Rocuronium 50 MG/5 ML Vial ONE (23:24)
[2017-11-17] MEDS ORDERED: fentaNYL 100 MCG/2 ML SDV ONE (00:22)
[2017-11-17] MEDS ORDERED: Neostigmine Methylsulfate 1 MG/ML 5 ML Syringe ONE (00:26)
--- NOTE | 2017-11-17 00:46 | PCM.OPNOTE ---
- General Post-Op/Procedure Note Date of Surgery/Procedure: 11/17/17 Operative Procedure(s): laparoscopic exploration, and laparoscopic drain placement Findings: Significant inflammatory mass in the RLQ, with difficulty delineating the appendix and appendiceal base. Given the significant inflammation and the patient's BMI of 56, the decision was to leave a laparoscopic drain placement and continue with IV antibiotics to potentially avoid a morbid open operation. Pre Op Diagnosis: acute appendicitis Post-Op Diagnosis: acute appendicitis Anesthesia Technique: General ET Tube Primary Surgeon: Ras Reno Anesthesia Provider: Derrek Pham Pathology: None Fluid Replacement, Intraop: 1,800 (crystalloid) Output, Urine Amount: 525 EBL in mLs: 15 Surgical Drain/Tube Type: Pete Andrea Flat Drain Drain/Tube Comments:: OG tube put out 300 cc Complications: None Condition: Stable Free Text/Narrative:: Indications for surgery: The patient is a 32 yo male, history of severe obesity (BMI 56), who presents with acute appendicitis. The patient was consented for laparoscopic appendectomy, possible open, possible other indicated procedures. Indications, risks, and benefits were discussed with the patient in detail. Explained to the patient the risk of complications would be higher given his obesity. Description of procedure: After surgical consent was verified, the patient was brought to the main OR. Anesthesia performed general endotracheal intubation without complications. Appropriate padding and straps were placed. SCD's were on and functioning. The patient had received a perioperative dose of IV Zosyn. A Mckeon catheter and OG tube were inserted. A surgical time-out was performed to verify proper patient, proper site, and proper procedure. Local anesthetic (1:1 solution of 1% lidocaine with epinephrine and 0.5% bupivacaine) was injected at Mobley's point in the LUQ. A 5 mm incision was made , and a Veress needle was inserted. The abdomen was insufflated to 15 mmHg without complications. Using the Optview technique, a 5 mm trocar was inserted. The laparoscope was inserted, and there was no evidence of intra-abdominal injury from trocar placement. Additional trocars were placed: a 12 mm trocar in the left lower quadrant and a 5 mm trocar in the suprapubic region. The patient was re-positioned to Trendelenburg with LEFT side down. There was a large amount of intra-abdominal fat, which had to be repositioned to get exposure to the RLQ. In the RLQ, there was a large area of inflammation and an inflammatory mass associated with the cecum. There was much difficulty delineating the appendix and appendiceal base. The patient's abdomen was very large, and his abdominal wall was very thick. This made positioning of the trocars challenging. Due to the distance between camera port in the LUQ, it was difficult to obtain an appropriate angle to visualize the surgical site. An additional 5 mm trocar was placed at the supraumbilical region, which was used as the camera port. During attempts at mobilizing this inflammatory mass, there was a tear made in the fold of Treves, with a small amount of resultant bleeding. Hemostasis was ensured using a Ligasure device. After many failed attempts to mobilize this mass and delineate the appendix, it became clear that the laparoscopic approach would not be successful in performing the appendectomy. Consideration was made to perform open appendectomy , with possible ileocecectomy. However, given the patient's severe obesity and thick abdominal wall, this would be a challenging procedure with increased patient morbidity. He also was noted to have poor pulmonary reserve. I discussed the patient case with Dr. Radha Tompkins, General Surgeon, by phone to seek another surgeon's opinion. After this discussion and further deliberation, the decision was made to place a laparoscopic drain and place the patient on IV antibiotics post-procedure with the goal to avoid a more morbid and invasive operation. A 10 mm flat KRISTI drain was inserted into the peritoneal cavity, with the drain lying over the RLQ and exiting the suprapubic trocar site. A 2-0 Nylon suture was used to secure the drain to the skin site. The 12 mm trocar site was closed with an interrupted 0-Vicryl suture via a transfascial suture passer. The supraumbilical trocar was removed under direct visualization, and the abdomen was allowed to desufflate. The remaining LUQ trocar was removed. The skin was closed with 4-0 Monocryl and covered with Dermabond. The patient tolerated the procedure well, was extubated, and transported to the PACU in stable condition. At the end of the case, all needle, instrument, and gauze counts were correct. The Mckeon catheter and OG tube were removed. I was present and scrubbed for the entirety of the case. Ras Reno M.D., F.A.C.S. General Surgery Pager: [phone]
--- NOTE | 2017-11-17 01:14 | PCM.POSTAN ---
POST ANESTHESIA ASSESSMENT - MENTAL STATUS Mental Status: Somnolent - VITAL SIGNS Pulse Rate: 98 SaO2: 94 Resp Rate: 22 Blood Pressure: 174/94 Temperature: 36.2 C - RESPIRATORY Respiratory Status: Respiratory Rate WNL, Airway Patent, O2 Saturation Stable, Supplemental Oxygen - CARDIOVASCULAR CV Status: Pulse Rate WNL, Blood Pressure Stable - GASTROINTESTINAL GI Status: No Symptoms - PAIN Pain Score: 0 - POST OP HYDRATION Hydration Status: Adequate & Stable
[2017-11-17] MEDS ORDERED: Meperidine PF 50 MG/ML Syringe IVPUSH PRN (01:16)
[2017-11-17] MEDS ORDERED: Ondansetron 4 MG/2 ML SDV IVPUSH PRN (01:16)
[2017-11-17] MEDS ORDERED: HYDROmorphone 0.5 MG/0.5 ML Syringe IVPUSH ONE (01:16)
[2017-11-17] MEDS ORDERED: diphenhydrAMINE 50 MG/ML SDV IVPUSH PRN (01:16)
[2017-11-17] MEDS ORDERED: fentaNYL 100 MCG/2 ML SDV IVPUSH PRN (01:16)
[2017-11-17] MEDS ORDERED: Ondansetron 4 MG in Sodium Chloride 0.9% 50 ML IV PRN (01:26)
[2017-11-17] MEDS ORDERED: HYDROmorphone 0.5 MG/0.5 ML Syringe IVPUSH PRN (01:26)
[2017-11-17] MEDS ORDERED: Metoprolol Tartrate 5 MG in Sodium Chloride 0.9% 50 ML IV PRN (01:33)
[2017-11-17] MEDS ORDERED: Piperacillin/Tazobactam 4.5 GM in Sodium Chloride 0.9% 100 ML IV SCH (02:00)
[2017-11-17] MEDS: Sodium Chloride 0.9% 1,000 ML IV SCH ×3 (02:34→17:25)
[2017-11-17] MEDS: Piperacillin/Tazobactam 4.5 GM in Sodium Chloride 0.9% 100 ML IV SCH ×3 (05:15→21:23)
--- NOTE | 2017-11-17 10:10 | CT ---
CT abdomen and pelvis Technique: Multiple axial sections were obtained from above the dome of the diaphragm inferiorly through the pubic symphysis. Intravenous and oral contrast was utilized. Delayed images were obtained through the bladder. Comparison: No previous abdominal imaging. Findings: Appendix is dilated and shows moderate amount of surrounding inflammatory change compatible with appendicitis. Prominent lymph nodes seen within the adjacent mesentery which are felt to be reactive from the appendicitis. Visualized lung bases are clear. Liver shows fatty infiltration without focal abnormality. Spleen appears within normal limits. Adrenal glands show no nodule. Pancreas is normal. Kidneys show no hydronephrosis or mass. Gallbladder contains no calcified gallstones. Aorta shows no aneurysmal dilatation. No retroperitoneal adenopathy is seen. No pelvic mass or adenopathy is seen. Delayed images show contrast within the distal ureters and within the bladder. Bone window settings were reviewed which appear within normal limits for the patient's age. Impression: 1. Findings compatible with appendicitis as described above. 2. Fatty infiltration within the liver. 3. No additional abnormality is appreciated. Diagnostic code #5 I agree with preliminary report from [facility], finalized at 11/16/17, 9:16 PM Central Time
--- NOTE | 2017-11-17 10:55 | PCM48HPAN ---
Post Anesthesia Note - EVALUATION WITHIN 48HRS OF ANESTHETIC Vital Signs in Normal Range: Yes Patient Participated in Evaluation: Yes Respiratory Function Stable: Yes Airway Patent: Yes Cardiovascular Function Stable: Yes Hydration Status Stable: Yes Pain Control Satisfactory: Yes Nausea and Vomiting Control Satisfactory: Yes Mental Status Recovered: Yes
--- NOTE | 2017-11-17 17:52 | PCM.PN ---
- General Info Date of Service: 11/17/17 Subjective Update: Very early this morning, patient was brought from [facility] to [facility]. Today, he denies abdominal pain. Reports that he feels much better than before surgery. Denies nausea/vomiting. BC=[id number]. - Patient Data Vitals - Most Recent: Last Vital Signs Temp 36.9 C 11/17/17 16:22 Pulse 74 11/17/17 16:22 Resp 20 11/17/17 16:22 BP 137/80 11/17/17 16:22 Pulse Ox 96 11/17/17 16:22 Weight - Most Recent: 181.437 kg I&O - Last 24 Hours: Intake & Output 11/17/17 11/17/17 11/17/17 06:59 14:59 22:59 Intake Total 2286 1513 Output Total 1415 60 Balance 871 1453 Lab Results Last 24 Hours: Laboratory Results - last 24 hr 11/16/17 11/16/17 11/16/17 Range/Units 17:45 18:18 18:18 WBC 15.27 H (4.23-9.07) K/mm3 RBC 5.47 (4.63-6.08) M/mm3 Hgb 15.0 (13.7-17.5) gm/L Hct 44.9 (40.1-51.0) % MCV 82.1 (79.0-92.2) fl MCH 27.4 (25.7-32.2) pg MCHC 33.4 (32.2-35.5) g/dl RDW Std Deviation 42.2 (35.1-43.9) fL Plt Count 295 (163-337) K/mm3 MPV 9.7 (9.4-12.3) fl Neut % (Auto) 85.3 H (34.0-67.9) % Lymph % (Auto) 8.6 L (21.8-53.1) % [place] % (Auto) 5.8 (5.3-12.2) % Eos % (Auto) 0.1 L (0.8-7.0) Baso % (Auto) 0.1 (0.1-1.2) % Neut # (Auto) 13.01 H (1.78-5.38) K/mm3 Lymph # (Auto) 1.31 L (1.32-3.57) K/mm3 [place] # (Auto) 0.89 H (0.30-0.82) K/mm3 Eos # (Auto) 0.02 L (0.04-0.54) K/mm3 Baso # (Auto) 0.02 (0.01-0.08) K/mm3 Manual Slide Review Normal smear Sodium 140 (136-145) mEq/L Potassium 3.8 (3.5-5.1) mEq/L Chloride 101 (98-107) mEq/L Carbon Dioxide 27 (21-32) mEq/L Anion Gap 15.8 H (5-15) BUN 7 (7-18) mg/dL Creatinine 0.9 (0.7-1.3) mg/dL Est Cr Clr Drug Dosing 127.82 mL/min Estimated GFR (MDRD) > 60 (>60) mL/min BUN/Creatinine Ratio 7.8 L (14-18) Glucose 135 H (74-106) mg/dL Calcium 8.9 (8.5-10.1) mg/dL Total Bilirubin 0.4 (0.2-1.0) mg/dL AST 26 (15-37) U/L ALT 60 (16-63) U/L Alkaline Phosphatase 78 (46-116) U/L Troponin I < 0.017 (0.00-0.056) ng/mL Total Protein 8.4 H (6.4-8.2) g/dl Albumin 3.2 L (3.4-5.0) g/dl Globulin 5.2 gm/dL Albumin/Globulin Ratio 0.6 L (1-2) Lipase 105 (73-393) U/L Urine Color Yellow (Yellow) Urine Appearance Clear (Clear) Urine pH 8.5 H (5.0-8.0) Ur Specific [place] 1.020 (1.005-1.030) Urine Protein 3+ H (Negative) Urine Glucose (UA) Negative (Negative) Urine Ketones Negative (Negative) Urine Occult Blood Negative (Negative) Urine Nitrite Negative (Negative) Urine Bilirubin Negative (Negative) Urine Urobilinogen 0.2 (0.2-1.0) Ur Leukocyte Esterase Negative (Negative) Urine RBC 0-5 (0-5) /hpf Urine WBC 0-5 (0-5) /hpf Ur Epithelial Cells 0-5 (0-5) /hpf Urine Bacteria Few (FEW) /hpf Urine Mucus Few (FEW) /hpf Med Orders - Current: Current Medications Diphenhydramine HCl (Benadryl) 25 mg IVPUSH Q6H PRN PRN Reason: Pruritis Hydromorphone HCl (Dilaudid) 0.5 mg IVPUSH Q2H PRN PRN Reason: Pain Ondansetron HCl 4 mg/ Sodium (Chloride) 52 mls @ 100 mls/hr IV Q4H PRN PRN Reason: Nausea Piperacillin Sod/Tazobactam (Sod 4.5 gm/ Sodium Chloride) 100 mls @ 25 mls/hr IV Q8H [facility] Last Admin: 11/17/17 13:59 Dose: 25 mls/hr Sodium Chloride (Normal Saline) 1,000 mls @ 125 mls/hr IV ASDIRECTED [facility] Last Admin: 11/17/17 17:25 Dose: 125 mls/hr Metoprolol Tartrate 5 mg/ (Sodium Chloride) 55 mls @ 100 mls/hr IV Q2H PRN PRN Reason: Hypertension Ondansetron HCl (Zofran) 4 mg IVPUSH ONETIME PRN PRN Reason: Nausea/Vomiting Sodium Chloride (Saline Flush) 10 ml FLUSH ASDIRECTED PRN PRN Reason: Keep Vein Open Last Admin: 11/16/17 18:35 Dose: 10 ml Discontinued Medications Bupivacaine HCl (Marcaine 0.5%) Confirm Administered Dose 30 ml .ROUTE .STK-MED ONE Stop: 11/16/17 22:08 Last Admin: 11/16/17 23:04 Dose: 10 ml Diatrizoate Meglum/Diatrizoate Sod (Gastrografin 37%) 90 ml PO ONETIME ONE Stop: 11/16/17 19:43 Last Admin: 11/16/17 20:01 Dose: 90 ml Famotidine (Pepcid) 20 mg IVPUSH ONETIME ONE Stop: 11/16/17 18:19 Last Admin: 11/16/17 18:34 Dose: 20 mg Fentanyl (Sublimaze) Confirm Administered Dose 250 mcg .ROUTE .STK-MED ONE Stop: 11/16/17 22:18 Fentanyl (Sublimaze) Confirm Administered Dose 100 mcg .ROUTE .STK-MED ONE Stop: 11/17/17 00:23 Glycopyrrolate () Confirm Administered Dose 1 mg .ROUTE .STK-MED ONE Stop: 11/17/17 00:27 Hydromorphone HCl (Dilaudid) 1 mg IVPUSH ONETIME ONE Stop: 11/16/17 18:18 Last Admin: 11/16/17 18:35 Dose: 1 mg Hydromorphone HCl (Dilaudid) 0.5 mg IVPUSH ONETIME ONE Stop: 11/16/17 19:15 Last Admin: 11/16/17 19:30 Dose: 0.5 mg Hydromorphone HCl (Dilaudid) 0.5 mg IVPUSH ONETIME ONE Stop: 11/16/17 20:37 Last Admin: 11/16/17 20:42 Dose: 0.5 mg Hydromorphone HCl (Dilaudid) Confirm Administered Dose 0.5 mg .ROUTE .STK-MED ONE Stop: 11/16/17 23:15 Hydromorphone HCl (Dilaudid) Confirm Administered Dose 0.5 mg .ROUTE .STK-MED ONE Stop: 11/16/17 23:15 Hydromorphone HCl (Dilaudid) 0.5 mg IVPUSH ONETIME ONE Stop: 11/17/17 01:17 Last Admin: 11/17/17 09:11 Dose: Not Given Sodium Chloride (Normal Saline) 1,000 mls @ 1,000 mls/hr IV .BOLUS STA Stop: 11/16/17 19:14 Last Admin: 11/16/17 18:33 Dose: 1,000 mls/hr Piperacillin Sod/Tazobactam (Sod 4.5 gm/ Sodium Chloride) 100 mls @ 200 mls/hr IV ONETIME ONE Stop: 11/16/17 22:15 Last Admin: 11/16/17 21:57 Dose: 200 mls/hr Piperacillin Sod/Tazobactam (Sod 4.5 gm/ Sodium Chloride) 100 mls @ 200 mls/hr IV Q8H [facility] Stop: 11/17/17 03:00 Last Admin: 11/17/17 09:13 Dose: Not Given Iopamidol (Isovue-300 (61%)) 125 ml IVPUSH ONETIME ONE Stop: 11/16/17 19:43 Last Admin: 09/03/18 20:01 Dose: 125 ml Ketamine HCl (Ketalar) Confirm Administered Dose 500 mg .ROUTE .STK-MED ONE Stop: 11/16/17 23:16 Lidocaine/Epinephrine (Xylocaine 1% With Epinephrine 1:100,000) Confirm Administered Dose 20 ml .ROUTE .STK-MED ONE Stop: 11/16/17 22:08 Last Admin: 11/16/17 23:04 Dose: 10 ml Midazolam HCl (Versed 1 Mg/Ml) Confirm Administered Dose 2 mg .ROUTE .STK-MED ONE Stop: 11/16/17 22:18 Neostigmine Methylsulfate (Neostigmine) Confirm Administered Dose 5 mg .ROUTE .STK-MED ONE Stop: 11/17/17 00:27 Ondansetron HCl (Zofran) 4 mg IVPUSH ONETIME ONE Stop: 11/16/17 18:16 Last Admin: 11/16/17 18:33 Dose: 4 mg Ondansetron HCl (Zofran Odt) 4 mg PO ONETIME ONE Stop: 11/16/17 19:19 Last Admin: 11/16/17 19:30 Dose: 4 mg Propofol (Diprivan 20 Ml) Confirm Administered Dose 400 mg .ROUTE .STK-MED ONE Stop: 11/16/17 22:18 Rocuronium [place] (Zemuron) Confirm Administered Dose 50 mg .ROUTE .STK-MED ONE Stop: 11/16/17 23:25 Sodium Chloride (Saline Flush) 10 ml FLUSH ONETIME ONE Stop: 11/16/17 19:43 Last Admin: 11/16/17 20:01 Dose: 10 ml - Exam General: Alert, Oriented, Cooperative GI/Abdominal Exam: Other (obese, soft, incisions C/D/I with Dermabond. Suprapubic KRISTI drain with SS fluid. Abdomen is nontender.) - Problem List & Annotations (1) Acute appendicitis SNOMED Code(s): 57698501 Code(s): K35.80 - UNSPECIFIED ACUTE APPENDICITIS Status: Acute Current Visit: Yes Qualifiers: Acute appendicitis type: with localized peritonitis Qualified Code(s): K35.3 - Acute appendicitis with localized peritonitis - Problem List Review Problem List Initiated/Reviewed/Updated: Yes - My Orders Last 24 Hours: My Active Orders 11/16/17 21:38 Schedule Procedure [COMM] Stat 11/17/17 01:26 HYDROmorphone [Dilaudid] 0.5 mg IVPUSH Q2H PRN Ondansetron [Zofran] 4 mg Sodium Chloride 0.9% [Normal Saline] 50 ml IV Q4H 11/17/17 01:27 SCD [Sequential Compression Device] [OM.PC] Routine 11/17/17 01:29 Surgical Drains [Drain Management] [RC] ASDIRECTED 11/17/17 01:30 Sodium Chloride 0.9% [Normal Saline] 1,000 ml IV ASDIRECTED 11/17/17 01:33 Metoprolol Tartrate [Lopressor] 5 mg Sodium Chloride 0.9% [Normal Saline] 50 ml IV Q2H 11/17/17 01:50 Telemetry Monitoring [Cardiac Monitoring] [RC] . DIRECTED 11/17/17 01:53 Ambulate [RC] ASDIRECTED Incentive Spirometry [RT Incentive Spirometry] [RC] ASDIRECTED Vital Signs [RC] Q4HR 11/17/17 03:29 Code Status [Resuscitation Status] Routine 11/17/17 06:00 Piperacillin/Tazobactam [Zosyn] 4.5 gm Sodium Chloride 0.9% [Normal Saline] 100 ml IV Q8H 11/17/17 06:02 Patient Status [ADT] Routine 11/17/17 Breakfast NPO [Nothing Per Oral Diet] [DIET] 11/18/17 05:11 CBC WITH AUTO DIFF [HEME] AM CMP [COMPREHENSIVE METABOLIC PN,CMP] [CHEM] AM 11/19/17 05:11 CBC WITH AUTO DIFF [HEME] AM CMP [COMPREHENSIVE METABOLIC PN,CMP] [CHEM] AM 11/20/17 05:11 CBC WITH AUTO DIFF [HEME] AM CMP [COMPREHENSIVE METABOLIC PN,CMP] [CHEM] AM - Plan Plan:: 32 yo male, h/o severe obesity (BMI 56), was taken to the OR late last night for laparoscopic appendectomy, found to have significant inflammation with difficulty mobilizing and delineating the appendix. An intraperitoneal drain was placed laparoscopically. - Will attempt to manage with IV antibiotics to avoid a more morbid operation ( open ileocecectomy) in this severely obese man with a BMI of 56. - IV Zosyn. - Continue NPO for now. - Check labs, including CBC, in AM. - Start heparin SQ for DVT prophylaxis. The plan of care was discussed with the patient and his girlfriend. Since I will be leaving town tomorrow morning, starting tomorrow morning, inpatient care will be resumed by Dr. Radha Tompkins. Ras Reno M.D., F.A.C.S. General Surgery Pager: [phone]
[2017-11-17] MEDS: Heparin Sodium 5,000 Units/ML Vial SUBCUT SCH (21:23)
[2017-11-18] MEDS: Sodium Chloride 0.9% 1,000 ML IV SCH (01:10)
[2017-11-18] MEDS: Heparin Sodium 5,000 Units/ML Vial SUBCUT SCH ×3 (03:50→21:00)
[2017-11-18] MEDS: Piperacillin/Tazobactam 4.5 GM in Sodium Chloride 0.9% 100 ML IV SCH ×3 (05:52→21:01)
--- NOTE | 2017-11-18 08:21 | PCM.SURGPN ---
- General Info Date of Service: 11/18/17 Date of Surgery/Procedure: 11/17/17 POD#: 1 Post-Op Diagnosis: acute appendicitis Admission Diagnosis/Problem: Acute appendicitis Functional Status: Reports: Pain Controlled, Urinating - Patient Data Vitals - Most Recent: Last Vital Signs Temp 37.6 C 11/18/17 03:44 Pulse 83 11/18/17 03:44 Resp 24 H 11/18/17 03:44 BP 110/64 11/18/17 03:44 Pulse Ox 92 L 11/18/17 03:44 Weight - Most Recent: 193.503 kg I&O - Last 24 Hours: Intake & Output 11/17/17 11/18/17 11/18/17 22:59 06:59 14:59 Intake Total 1513 1762 Output Total 60 1265 Balance 1453 497 Lab Results Last 24 Hrs: Laboratory Results - last 24 hr 11/18/17 11/18/17 Range/Units 06:18 06:18 WBC 9.41 H (4.23-9.07) K/mm3 RBC 4.66 (4.63-6.08) M/mm3 Hgb 12.9 L (13.7-17.5) gm/L Hct 39.8 L (40.1-51.0) % MCV 85.4 (79.0-92.2) fl MCH 27.7 (25.7-32.2) pg MCHC 32.4 (32.2-35.5) g/dl RDW Std Deviation 44.5 H (35.1-43.9) fL Plt Count 249 (163-337) K/mm3 MPV 9.4 (9.4-12.3) fl Neut % (Auto) 73.4 H (34.0-67.9) % Lymph % (Auto) 17.7 L (21.8-53.1) % [place] % (Auto) 8.3 (5.3-12.2) % Eos % (Auto) 0.3 L (0.8-7.0) Baso % (Auto) 0.1 (0.1-1.2) % Neut # (Auto) 6.90 H (1.78-5.38) K/mm3 Lymph # (Auto) 1.67 (1.32-3.57) K/mm3 [place] # (Auto) 0.78 (0.30-0.82) K/mm3 Eos # (Auto) 0.03 L (0.04-0.54) K/mm3 Baso # (Auto) 0.01 (0.01-0.08) K/mm3 Sodium 139 (136-145) mEq/L Potassium 3.8 (3.5-5.1) mEq/L Chloride 105 (98-107) mEq/L Carbon Dioxide 25 (21-32) mEq/L Anion Gap 12.8 (5-15) BUN 8 (7-18) mg/dL Creatinine 0.7 (0.7-1.3) mg/dL Est Cr Clr Drug Dosing 164.35 mL/min Estimated GFR (MDRD) > 60 (>60) mL/min BUN/Creatinine Ratio 11.4 L (14-18) Glucose 101 (74-106) mg/dL Calcium 7.8 L (8.5-10.1) mg/dL Total Bilirubin 0.4 (0.2-1.0) mg/dL AST 27 (15-37) U/L ALT 36 (16-63) U/L Alkaline Phosphatase 57 (46-116) U/L Total Protein 7.1 (6.4-8.2) g/dl Albumin 2.5 L (3.4-5.0) g/dl Globulin 4.6 gm/dL Albumin/Globulin Ratio 0.5 L (1-2) Med Orders - Current: Current Medications Diphenhydramine HCl (Benadryl) 25 mg IVPUSH Q6H PRN PRN Reason: Pruritis Heparin Sodium (Porcine) (Heparin Sodium) 5,000 units SUBCUT Q8H [facility] Last Admin: 11/18/17 03:50 Dose: 5,000 units Hydromorphone HCl (Dilaudid) 0.5 mg IVPUSH Q2H PRN PRN Reason: Pain Ondansetron HCl 4 mg/ Sodium (Chloride) 52 mls @ 100 mls/hr IV Q4H PRN PRN Reason: Nausea Piperacillin Sod/Tazobactam (Sod 4.5 gm/ Sodium Chloride) 100 mls @ 25 mls/hr IV Q8H [facility] Last Admin: 11/18/17 05:52 Dose: 25 mls/hr Sodium Chloride (Normal Saline) 1,000 mls @ 125 mls/hr IV ASDIRECTED [facility] Last Admin: 11/18/17 01:10 Dose: 125 mls/hr Metoprolol Tartrate 5 mg/ (Sodium Chloride) 55 mls @ 100 mls/hr IV Q2H PRN PRN Reason: Hypertension Ondansetron HCl (Zofran) 4 mg IVPUSH ONETIME PRN PRN Reason: Nausea/Vomiting Sodium Chloride (Saline Flush) 10 ml FLUSH ASDIRECTED PRN PRN Reason: Keep Vein Open Last Admin: 11/16/17 18:35 Dose: 10 ml Discontinued Medications Bupivacaine HCl (Marcaine 0.5%) Confirm Administered Dose 30 ml .ROUTE .STK-MED ONE Stop: 11/16/17 22:08 Last Admin: 11/16/17 23:04 Dose: 10 ml Diatrizoate Meglum/Diatrizoate Sod (Gastrografin 37%) 90 ml PO ONETIME ONE Stop: 11/16/17 19:43 Last Admin: 11/16/17 20:01 Dose: 90 ml Famotidine (Pepcid) 20 mg IVPUSH ONETIME ONE Stop: 11/16/17 18:19 Last Admin: 11/16/17 18:34 Dose: 20 mg Fentanyl (Sublimaze) Confirm Administered Dose 250 mcg .ROUTE .STK-MED ONE Stop: 11/16/17 22:18 Fentanyl (Sublimaze) Confirm Administered Dose 100 mcg .ROUTE .STK-MED ONE Stop: 11/17/17 00:23 Glycopyrrolate () Confirm Administered Dose 1 mg .ROUTE .STK-MED ONE Stop: 11/17/17 00:27 Hydromorphone HCl (Dilaudid) 1 mg IVPUSH ONETIME ONE Stop: 11/16/17 18:18 Last Admin: 11/16/17 18:35 Dose: 1 mg Hydromorphone HCl (Dilaudid) 0.5 mg IVPUSH ONETIME ONE Stop: 11/16/17 19:15 Last Admin: 11/16/17 19:30 Dose: 0.5 mg Hydromorphone HCl (Dilaudid) 0.5 mg IVPUSH ONETIME ONE Stop: 11/16/17 20:37 Last Admin: 11/16/17 20:42 Dose: 0.5 mg Hydromorphone HCl (Dilaudid) Confirm Administered Dose 0.5 mg .ROUTE .STK-MED ONE Stop: 11/16/17 23:15 Hydromorphone HCl (Dilaudid) Confirm Administered Dose 0.5 mg .ROUTE .STK-MED ONE Stop: 11/16/17 23:15 Hydromorphone HCl (Dilaudid) 0.5 mg IVPUSH ONETIME ONE Stop: 11/17/17 01:17 Last Admin: 11/17/17 09:11 Dose: Not Given Sodium Chloride (Normal Saline) 1,000 mls @ 1,000 mls/hr IV .BOLUS STA Stop: 11/16/17 19:14 Last Admin: 11/16/17 18:33 Dose: 1,000 mls/hr Piperacillin Sod/Tazobactam (Sod 4.5 gm/ Sodium Chloride) 100 mls @ 200 mls/hr IV ONETIME ONE Stop: 11/16/17 22:15 Last Admin: 11/16/17 21:57 Dose: 200 mls/hr Piperacillin Sod/Tazobactam (Sod 4.5 gm/ Sodium Chloride) 100 mls @ 200 mls/hr IV Q8H [facility] Stop: 11/17/17 03:00 Last Admin: 11/17/17 09:13 Dose: Not Given Iopamidol (Isovue-300 (61%)) 125 ml IVPUSH ONETIME ONE Stop: 11/16/17 19:43 Last Admin: 11/16/17 20:01 Dose: 125 ml Ketamine HCl (Ketalar) Confirm Administered Dose 500 mg .ROUTE .STK-MED ONE Stop: 11/16/17 23:16 Lidocaine/Epinephrine (Xylocaine 1% With Epinephrine 1:100,000) Confirm Administered Dose 20 ml .ROUTE .STK-MED ONE Stop: 11/16/17 22:08 Last Admin: 11/16/17 23:04 Dose: 10 ml Midazolam HCl (Versed 1 Mg/Ml) Confirm Administered Dose 2 mg .ROUTE .STK-MED ONE Stop: 11/16/17 22:18 Neostigmine Methylsulfate (Neostigmine) Confirm Administered Dose 5 mg .ROUTE .STK-MED ONE Stop: 11/17/17 00:27 Ondansetron HCl (Zofran) 4 mg IVPUSH ONETIME ONE Stop: 11/16/17 18:16 Last Admin: 11/16/17 18:33 Dose: 4 mg Ondansetron HCl (Zofran Odt) 4 mg PO ONETIME ONE Stop: 11/16/17 19:19 Last Admin: 11/16/17 19:30 Dose: 4 mg Propofol (Diprivan 20 Ml) Confirm Administered Dose 400 mg .ROUTE .STK-MED ONE Stop: 11/16/17 22:18 Rocuronium [place] (Zemuron) Confirm Administered Dose 50 mg .ROUTE .STK-MED ONE Stop: 11/16/17 23:25 Sodium Chloride (Saline Flush) 10 ml FLUSH ONETIME ONE Stop: 11/16/17 19:43 Last Admin: 11/16/17 20:01 Dose: 10 ml - Exam Wound/Incisions: Healing Well General: Alert, Oriented HEENT: Pupils Equal, Pupils Reactive Lungs: Normal Respiratory Effort GI/Abdominal Exam: Soft, No Distention, Tender (appropriately tender around incisions, TTP over RLQ), Other (incisions well approximated; KRISTI bulb with serosanguinous drainage) Skin: Warm, Dry, Intact Psy/Mental Status: Alert, Normal Affect, Normal Mood - Problem List & Annotations (1) Acute appendicitis SNOMED Code(s): 30958294 Code(s): K35.80 - UNSPECIFIED ACUTE APPENDICITIS Status: Acute Current Visit: Yes Qualifiers: Acute appendicitis type: with localized peritonitis Qualified Code(s): K35.3 - Acute appendicitis with localized peritonitis - Problem List Review Problem List Initiated/Reviewed/Updated: Yes - My Orders Last 24 Hours: Active Orders 24 hr Category Date Time Status CBC W/O DIFF,HEMOGRAM [HEME] MOTH@0700 Lab 11/19/17 07:00 Ordered CBC W/O DIFF,HEMOGRAM [HEME] MOTH@0700 Lab 11/23/17 07:00 Ordered CBC W/O DIFF,HEMOGRAM [HEME] MOTH@0700 Lab 11/26/17 07:00 Ordered CBC W/O DIFF,HEMOGRAM [HEME] MOTH@0700 Lab 11/30/17 07:00 Ordered CBC W/O DIFF,HEMOGRAM [HEME] MOTH@0700 Lab 12/03/17 07:00 Ordered CBC W/O DIFF,HEMOGRAM [HEME] MOTH@0700 Lab 12/07/17 07:00 Ordered CBC WITH AUTO DIFF [HEME] AM Lab 11/19/17 05:11 Ordered CBC WITH AUTO DIFF [HEME] AM Lab 11/20/17 05:11 Ordered CMP [COMPREHENSIVE METABOLIC PN,CMP] [CHEM] AM Lab 11/19/17 05:11 Ordered CMP [COMPREHENSIVE METABOLIC PN,CMP] [CHEM] AM Lab 11/20/17 05:11 Ordered Heparin Sodium Med 11/17/17 20:00 Active 5,000 units SUBCUT Q8H Medication Orders Diphenhydramine HCl (Benadryl) 25 mg IVPUSH Q6H PRN PRN Reason: Pruritis Heparin Sodium (Porcine) (Heparin Sodium) 5,000 units SUBCUT Q8H [facility] Last Admin: 11/18/17 03:50 Dose: 5,000 units Admin: 11/17/17 21:23 Dose: 5,000 units Hydromorphone HCl (Dilaudid) 0.5 mg IVPUSH Q2H PRN PRN Reason: Pain Ondansetron HCl 4 mg/ Sodium (Chloride) 52 mls @ 100 mls/hr IV Q4H PRN PRN Reason: Nausea Piperacillin Sod/Tazobactam (Sod 4.5 gm/ Sodium Chloride) 100 mls @ 25 mls/hr IV Q8H [facility] Last Admin: 11/18/17 05:52 Dose: 25 mls/hr Infusion: 11/18/17 01:23 Dose: 25 mls/hr Admin: 11/17/17 21:23 Dose: 25 mls/hr Infusion: 11/17/17 17:59 Dose: 25 mls/hr Admin: 11/17/17 13:59 Dose: 25 mls/hr Infusion: 11/17/17 09:15 Dose: 25 mls/hr Admin: 11/17/17 05:15 Dose: 25 mls/hr Sodium Chloride (Normal Saline) 1,000 mls @ 125 mls/hr IV ASDIRECTED [facility] Last Admin: 11/18/17 01:10 Dose: 125 mls/hr Infusion: 11/18/17 01:10 Dose: 125 mls/hr Admin: 11/17/17 17:25 Dose: 125 mls/hr Infusion: 11/17/17 17:25 Dose: 125 mls/hr Admin: 11/17/17 10:11 Dose: 125 mls/hr Infusion: 11/17/17 10:11 Dose: 125 mls/hr Admin: 11/17/17 02:34 Dose: 125 mls/hr Metoprolol Tartrate 5 mg/ (Sodium Chloride) 55 mls @ 100 mls/hr IV Q2H PRN PRN Reason: Hypertension Ondansetron HCl (Zofran) 4 mg IVPUSH ONETIME PRN PRN Reason: Nausea/Vomiting Sodium Chloride (Saline Flush) 10 ml FLUSH ASDIRECTED PRN PRN Reason: Keep Vein Open Last Admin: 11/16/17 18:35 Dose: 10 ml - Assessment Assessment (Free Text/Narrative):: 32 y/o morbidly obese male who presents with acute appendicitis. Laparoscopic appendectomy aborted due to technical difficulty from patient's size and disease process; drain was placed. Now POD1. Pt is improving with IV abx - continue current antibiotic regimen with IV Zosyn - continue current pain regimen - Will start clear liquids. Will monitor for pt tolerance before advancing further - continue KRISTI drain; please teach pt how to care for his drain - Encourage ambulation and SCD use; continue SubQ heparin TID Radha Tompkins MD General surgery
[2017-11-18] MEDS ORDERED: Acetaminophen/HYDROcodone 325-5 MG Tab PO PRN (08:32)
[2017-11-18] MEDS ORDERED: HYDROmorphone 0.5 MG/0.5 ML Syringe IVPUSH PRN (08:32)
[2017-11-18] MEDS ORDERED: Acetaminophen 325 MG Tab PO PRN (08:34)
[2017-11-18] MEDS ORDERED: Acetaminophen/HYDROcodone 325-10 MG Tab PO PRN (08:36)
[2017-11-18] MEDS ORDERED: Ondansetron 4 MG/2 ML SDV IV PRN (08:41)
[2017-11-18] MEDS ORDERED: Metoprolol Tartrate 5 MG/5 ML SDV IV PRN (08:42)
[2017-11-18] MEDS: D5 1/2 NS w/ 20 mEq/L KCl 1,000 ML IV SCH ×2 (08:50→18:22)
[2017-11-19] MEDS: D5 1/2 NS w/ 20 mEq/L KCl 1,000 ML IV SCH (03:59)
[2017-11-19] MEDS: Heparin Sodium 5,000 Units/ML Vial SUBCUT SCH ×2 (04:02→12:01)
[2017-11-19] MEDS: Piperacillin/Tazobactam 4.5 GM in Sodium Chloride 0.9% 100 ML IV SCH (05:48)
--- NOTE | 2017-11-19 08:59 | PCM.SURGPN ---
- General Info Date of Service: 11/19/17 Date of Surgery/Procedure: 11/17/17 POD#: 2 Post-Op Diagnosis: acute appendicitis Functional Status: Reports: Pain Controlled, Tolerating Diet, Urinating Pain Score: 0 - Patient Data Vitals - Most Recent: Last Vital Signs Temp 37.0 C 11/19/17 04:06 Pulse 74 11/19/17 04:06 Resp 20 11/19/17 04:06 BP 123/65 11/19/17 04:06 Pulse Ox 93 L 11/19/17 04:06 Weight - Most Recent: 192.833 kg I&O - Last 24 Hours: Intake & Output 11/18/17 11/19/17 11/19/17 22:59 06:59 14:59 Intake Total 2134 2100 Output Total 40 43 Balance 2094 2056 Lab Results Last 24 Hrs: Laboratory Results - last 24 hr 11/19/17 11/19/17 Range/Units 05:51 05:51 WBC 6.66 (4.23-9.07) K/mm3 RBC 4.63 (4.63-6.08) M/mm3 Hgb 12.7 L (13.7-17.5) gm/L Hct 39.4 L (40.1-51.0) % MCV 85.1 (79.0-92.2) fl MCH 27.4 (25.7-32.2) pg MCHC 32.2 (32.2-35.5) g/dl RDW Std Deviation 44.0 H (35.1-43.9) fL Plt Count 286 (163-337) K/mm3 MPV 9.9 (9.4-12.3) fl Neut % (Auto) 64.0 (34.0-67.9) % Lymph % (Auto) 23.6 (21.8-53.1) % [place] % (Auto) 9.2 (5.3-12.2) % Eos % (Auto) 2.6 (0.8-7.0) Baso % (Auto) 0.3 (0.1-1.2) % Neut # (Auto) 4.27 (1.78-5.38) K/mm3 Lymph # (Auto) 1.57 (1.32-3.57) K/mm3 [place] # (Auto) 0.61 (0.30-0.82) K/mm3 Eos # (Auto) 0.17 (0.04-0.54) K/mm3 Baso # (Auto) 0.02 (0.01-0.08) K/mm3 Sodium 138 (136-145) mEq/L Potassium 3.8 (3.5-5.1) mEq/L Chloride 104 (98-107) mEq/L Carbon Dioxide 23 (21-32) mEq/L Anion Gap 14.8 (5-15) BUN 7 (7-18) mg/dL Creatinine 0.7 (0.7-1.3) mg/dL Est Cr Clr Drug Dosing 164.35 mL/min Estimated GFR (MDRD) > 60 (>60) mL/min BUN/Creatinine Ratio 10.0 L (14-18) Glucose 117 H (74-106) mg/dL Calcium 7.9 L (8.5-10.1) mg/dL Total Bilirubin 0.2 (0.2-1.0) mg/dL AST 30 (15-37) U/L ALT 42 (16-63) U/L Alkaline Phosphatase 64 (46-116) U/L Total Protein 7.4 (6.4-8.2) g/dl Albumin 2.4 L (3.4-5.0) g/dl Globulin 5.0 gm/dL Albumin/Globulin Ratio 0.5 L (1-2) Med Orders - Current: Current Medications Acetaminophen (Tylenol) 650 mg PO Q4H PRN PRN Reason: Pain (mild 1-3) Hydrocodone Bitart/Acetaminophen ([place] 325-5 Mg) 1 tab PO Q4H PRN PRN Reason: Pain (moderate 4-6) Hydrocodone Bitart/Acetaminophen ([place] 325-10 Mg) 1 tab PO Q4H PRN PRN Reason: Pain (severe 7-10) Amoxicillin/Clavulanate Potassium (Augmentin 875 Mg/125 Mg) 1 tab PO Q12HR [facility] Stop: 11/30/17 21:01 Heparin Sodium (Porcine) (Heparin Sodium) 5,000 units SUBCUT Q8H [facility] Last Admin: 11/19/17 04:02 Dose: 5,000 units Hydromorphone HCl (Dilaudid) 0.5 mg IVPUSH ONETIME PRN PRN Reason: Breakthrough pain Metoprolol Tartrate (Lopressor) 5 mg IV Q2H PRN PRN Reason: Hypertension Ondansetron HCl (Zofran) 4 mg IV Q4H PRN PRN Reason: Nausea Sodium Chloride (Saline Flush) 10 ml FLUSH ASDIRECTED PRN PRN Reason: Keep Vein Open Last Admin: 11/16/17 18:35 Dose: 10 ml Discontinued Medications Bupivacaine HCl (Marcaine 0.5%) Confirm Administered Dose 30 ml .ROUTE .STK-MED ONE Stop: 11/16/17 22:08 Last Admin: 11/16/17 23:04 Dose: 10 ml Diatrizoate Meglum/Diatrizoate Sod (Gastrografin 37%) 90 ml PO ONETIME ONE Stop: 11/16/17 19:43 Last Admin: 11/16/17 20:01 Dose: 90 ml Diphenhydramine HCl (Benadryl) 25 mg IVPUSH Q6H PRN PRN Reason: Pruritis Famotidine (Pepcid) 20 mg IVPUSH ONETIME ONE Stop: 11/16/17 18:19 Last Admin: 11/16/17 18:34 Dose: 20 mg Fentanyl (Sublimaze) Confirm Administered Dose 250 mcg .ROUTE .STK-MED ONE Stop: 11/16/17 22:18 Fentanyl (Sublimaze) Confirm Administered Dose 100 mcg .ROUTE .STK-MED ONE Stop: 11/17/17 00:23 Glycopyrrolate () Confirm Administered Dose 1 mg .ROUTE .STK-MED ONE Stop: 11/17/17 00:27 Hydromorphone HCl (Dilaudid) 1 mg IVPUSH ONETIME ONE Stop: 11/16/17 18:18 Last Admin: 11/16/17 18:35 Dose: 1 mg Hydromorphone HCl (Dilaudid) 0.5 mg IVPUSH ONETIME ONE Stop: 11/16/17 19:15 Last Admin: 11/16/17 19:30 Dose: 0.5 mg Hydromorphone HCl (Dilaudid) 0.5 mg IVPUSH ONETIME ONE Stop: 11/16/17 20:37 Last Admin: 11/16/17 20:42 Dose: 0.5 mg Hydromorphone HCl (Dilaudid) Confirm Administered Dose 0.5 mg .ROUTE .STK-MED ONE Stop: 11/16/17 23:15 Hydromorphone HCl (Dilaudid) Confirm Administered Dose 0.5 mg .ROUTE .STK-MED ONE Stop: 11/16/17 23:15 Hydromorphone HCl (Dilaudid) 0.5 mg IVPUSH ONETIME ONE Stop: 11/17/17 01:17 Last Admin: 11/17/17 09:11 Dose: Not Given Hydromorphone HCl (Dilaudid) 0.5 mg IVPUSH Q2H PRN PRN Reason: Pain Sodium Chloride (Normal Saline) 1,000 mls @ 1,000 mls/hr IV .BOLUS STA Stop: 11/16/17 19:14 Last Admin: 11/16/17 18:33 Dose: 1,000 mls/hr Piperacillin Sod/Tazobactam (Sod 4.5 gm/ Sodium Chloride) 100 mls @ 200 mls/hr IV ONETIME ONE Stop: 11/16/17 22:15 Last Admin: 11/16/17 21:57 Dose: 200 mls/hr Ondansetron HCl 4 mg/ Sodium (Chloride) 52 mls @ 100 mls/hr IV Q4H PRN PRN Reason: Nausea Piperacillin Sod/Tazobactam (Sod 4.5 gm/ Sodium Chloride) 100 mls @ 25 mls/hr IV Q8H [facility] Last Admin: 11/19/17 05:48 Dose: 25 mls/hr Sodium Chloride (Normal Saline) 1,000 mls @ 125 mls/hr IV ASDIRECTED [facility] Last Admin: 11/18/17 01:10 Dose: 125 mls/hr Piperacillin Sod/Tazobactam (Sod 4.5 gm/ Sodium Chloride) 100 mls @ 200 mls/hr IV Q8H [facility] Stop: 11/17/17 03:00 Last Admin: 11/17/17 09:13 Dose: Not Given Metoprolol Tartrate 5 mg/ (Sodium Chloride) 55 mls @ 100 mls/hr IV Q2H PRN PRN Reason: Hypertension Potassium Chloride/Dextrose/Sod Cl (D5 1/2 Ns W/ 20 Meq/L Kcl) 1,000 mls @ 100 mls/hr IV ASDIRECTED [facility] Last Admin: 11/19/17 03:59 Dose: 100 mls/hr Iopamidol (Isovue-300 (61%)) 125 ml IVPUSH ONETIME ONE Stop: 11/16/17 19:43 Last Admin: 11/16/17 20:01 Dose: 125 ml Ketamine HCl (Ketalar) Confirm Administered Dose 500 mg .ROUTE .STK-MED ONE Stop: 11/16/17 23:16 Lidocaine/Epinephrine (Xylocaine 1% With Epinephrine 1:100,000) Confirm Administered Dose 20 ml .ROUTE .STK-MED ONE Stop: 11/16/17 22:08 Last Admin: 11/16/17 23:04 Dose: 10 ml Midazolam HCl (Versed 1 Mg/Ml) Confirm Administered Dose 2 mg .ROUTE .STK-MED ONE Stop: 11/16/17 22:18 Neostigmine Methylsulfate (Neostigmine) Confirm Administered Dose 5 mg .ROUTE .STK-MED ONE Stop: 11/17/17 00:27 Ondansetron HCl (Zofran) 4 mg IVPUSH ONETIME ONE Stop: 11/16/17 18:16 Last Admin: 11/16/17 18:33 Dose: 4 mg Ondansetron HCl (Zofran Odt) 4 mg PO ONETIME ONE Stop: 11/16/17 19:19 Last Admin: 11/16/17 19:30 Dose: 4 mg Ondansetron HCl (Zofran) 4 mg IVPUSH ONETIME PRN PRN Reason: Nausea/Vomiting Propofol (Diprivan 20 Ml) Confirm Administered Dose 400 mg .ROUTE .STK-MED ONE Stop: 11/16/17 22:18 Rocuronium [place] (Zemuron) Confirm Administered Dose 50 mg .ROUTE .STK-MED ONE Stop: 11/16/17 23:25 Sodium Chloride (Saline Flush) 10 ml FLUSH ONETIME ONE Stop: 11/16/17 19:43 Last Admin: 11/16/17 20:01 Dose: 10 ml - Exam Wound/Incisions: Healing Well General: Alert, Oriented Lungs: Normal Respiratory Effort GI/Abdominal Exam: Soft, No Distention, Tender (mild TTP in RLQ and around incisions) - Problem List & Annotations (1) Acute appendicitis SNOMED Code(s): 37120158 Code(s): K35.80 - UNSPECIFIED ACUTE APPENDICITIS Status: Acute Current Visit: Yes Qualifiers: Acute appendicitis type: with localized peritonitis Qualified Code(s): K35.3 - Acute appendicitis with localized peritonitis - Problem List Review Problem List Initiated/Reviewed/Updated: Yes - My Orders Last 24 Hours: Active Orders 24 hr Category Date Time Status Communication Order [RC] Q8HR Care 11/18/17 08:56 Active Regular Diet [DIET] Diet 11/18/17 Dinner Active CBC W/O DIFF,HEMOGRAM [HEME] MOTH@0700 Lab 11/23/17 07:00 Ordered CBC W/O DIFF,HEMOGRAM [HEME] MOTH@0700 Lab 11/26/17 07:00 Ordered CBC W/O DIFF,HEMOGRAM [HEME] MOTH@0700 Lab 11/30/17 07:00 Ordered CBC W/O DIFF,HEMOGRAM [HEME] MOTH@0700 Lab 12/03/17 07:00 Ordered CBC W/O DIFF,HEMOGRAM [HEME] MOTH@0700 Lab 12/07/17 07:00 Ordered CBC WITH AUTO DIFF [HEME] AM Lab 11/20/17 05:11 Ordered CMP [COMPREHENSIVE METABOLIC PN,CMP] [CHEM] AM Lab 11/20/17 05:11 Ordered Acetaminophen [Tylenol] Med 11/18/17 08:34 Active 650 mg PO Q4H PRN Acetaminophen/HYDROcodone [[place] 325-10 MG] Med 11/18/17 08:36 Active 1 tab PO Q4H PRN Acetaminophen/HYDROcodone [[place] 325-5 MG] Med 11/18/17 08:32 Active 1 tab PO Q4H PRN Amoxicillin/Clavulanate K [Augmentin 875 MG/125 MG] Med 11/19/17 09:00 Active 1 tab PO Q12HR HYDROmorphone [Dilaudid] Med 11/18/17 08:32 Active 0.5 mg IVPUSH ONETIME PRN Metoprolol Tartrate [Lopressor] Med 11/18/17 08:42 Active 5 mg IV Q2H PRN Ondansetron [Zofran] Med 11/18/17 08:41 Active 4 mg IV Q4H PRN Medication Orders Acetaminophen (Tylenol) 650 mg PO Q4H PRN PRN Reason: Pain (mild 1-3) Hydrocodone Bitart/Acetaminophen ([place] 325-5 Mg) 1 tab PO Q4H PRN PRN Reason: Pain (moderate 4-6) Hydrocodone Bitart/Acetaminophen ([place] 325-10 Mg) 1 tab PO Q4H PRN PRN Reason: Pain (severe 7-10) Amoxicillin/Clavulanate Potassium (Augmentin 875 Mg/125 Mg) 1 tab PO Q12HR [facility] Stop: 11/30/17 21:01 Heparin Sodium (Porcine) (Heparin Sodium) 5,000 units SUBCUT Q8H [facility] Last Admin: 11/19/17 04:02 Dose: 5,000 units Admin: 11/18/17 21:00 Dose: 5,000 units Admin: 11/18/17 13:08 Dose: 5,000 units Admin: 11/18/17 03:50 Dose: 5,000 units Admin: 11/17/17 21:23 Dose: 5,000 units Hydromorphone HCl (Dilaudid) 0.5 mg IVPUSH ONETIME PRN PRN Reason: Breakthrough pain Metoprolol Tartrate (Lopressor) 5 mg IV Q2H PRN PRN Reason: Hypertension Ondansetron HCl (Zofran) 4 mg IV Q4H PRN PRN Reason: Nausea Sodium Chloride (Saline Flush) 10 ml FLUSH ASDIRECTED PRN PRN Reason: Keep Vein Open Last Admin: 11/16/17 18:35 Dose: 10 ml - Assessment Assessment (Free Text/Narrative):: 32 y/o male now POD2 after attempted laparoscopic appendectomy. Pt is doing well and pain improved from yesterday - Plan Plan (Free Text/Narrative):: - Tolerating regular diet, continue regular diet - D/c IV abx, will start Augmentin PO - D/c IVF - ambulate, SCDs and subcutaneous heparin while in the hospital - Pt to be discharged with KRISTI drain F/u in my office in 1wk, will plan surgery as an outpatient Discharge home today Radha Tompkins MD General surgery
[2017-11-19] MEDS ORDERED: Amoxicillin/Clavulanate K 875-125 MG Tab PO SCH (09:00)
[2017-11-19] MEDS ORDERED: Pneumococcal 13-Valent Conjugate Vaccine 0.5 ML Syringe IM ONE (10:48)
[2017-11-19] MEDS ORDERED: Pneumococcal Polyvalent-23 Vaccine 0.5 ML SDV IM ONE (11:00)
--- NOTE | 2017-11-20 11:50 | PCM.DCSUM1 ---
Discharge Summary - Hospital Course Free Text/Narrative:: he patient was seen in the emergency department and evaluated. He was diagnosed with acute appendicitis. He was taken back to the operating room urgently for an appendectomy. However, due to the patient's BMI and the infection, his appendix was not able to be located. There was inflammation and tissue changes that made itdifficult to continue. The patient was then drained and the incisions were closed. He was admitted to the surgical floor for IV antibiotics and monitoring. On postop day 1 he was doing well and his diet was restarted. On postop day 2, the patient was doing very well and tolerating a regular diet. He was sent home on oral antibiotics with plan to follow-up in clinic. He was sent home with the surgical drain to continue to drain the area. He had normalization of his white blood cell count prior to discharge. Diagnosis: Stroke: No - Discharge Data Discharge Date: 11/19/17 Discharge Disposition: Home, Self-Care 01 Condition: Stable - Discharge Diagnosis/Problem(s) (1) Acute appendicitis SNOMED Code(s): 89557551 ICD Code: K35.80 - UNSPECIFIED ACUTE APPENDICITIS Status: Acute Qualifiers: Acute appendicitis type: with localized peritonitis Qualified Code(s): K35.3 - Acute appendicitis with localized peritonitis - Patient Summary/Data Operative Procedure(s) Performed: laparoscopic exploration, and laparoscopic drain placement Complications: none apparent Consults: Consultations 11/16/17 20:24 Consult to Physician [CONS] Stat - Patient Instructions Diet: Heart Healthy Diet Activity: As Tolerated, No Lifting Over 20 Pounds Driving: May Drive Today Driving, Other: do not drive if you are taking narcotic pain medications Showering/Bathing: No Showering Wound/Incision Care: Keep Operative Site/Wound Site Clean and Dry Notify Provider of: Fever, Increased Pain, Swelling and Redness, Nausea and/or Vomiting - Discharge Plan *PRESCRIPTION DRUG MONITORING PROGRAM REVIEWED*: Not Applicable *COPY OF PRESCRIPTION DRUG MONITORING REPORT IN PATIENT TWAN: Not Applicable Prescriptions/Med Rec: Amoxicillin/Clavulanate K [Augmentin 875-125 MG] 1 tab PO Q12HR 12 Days #24 tablet Home Medications: Home Meds Amoxicillin/Clavulanate K [Augmentin 875-125 MG] 1 tab PO Q12HR 12 Days #24 tablet 11/19/17 [Rx] Patient Handouts: Appendicitis, Laparoscopic Appendectomy, Adult, Care After, Laparoscopic Appendectomy, Adult, Steps to Quit Smoking Referrals: Radha Tompkins MD [Physician] - 11/25/17 1:00 pm (Your appointment is November 25 at 1:00pm. Please check in for your appointment at 12: 45.) PCP,None [Primary Care Provider] - - Patient Data Vitals - Most Recent: Last Vital Signs Temp 36.4 C 11/19/17 09:27 Pulse 73 11/19/17 09:27 Resp 20 11/19/17 09:27 BP 139/87 11/19/17 09:27 Pulse Ox 94 L 11/19/17 09:27 Weight - Most Recent: 192.833 kg Med Orders - Current: Current Medications Discontinued Medications Acetaminophen (Tylenol) 650 mg PO Q4H PRN PRN Reason: Pain (mild 1-3) Hydrocodone Bitart/Acetaminophen ([place] 325-5 Mg) 1 tab PO Q4H PRN PRN Reason: Pain (moderate 4-6) Hydrocodone Bitart/Acetaminophen ([place] 325-10 Mg) 1 tab PO Q4H PRN PRN Reason: Pain (severe 7-10) Amoxicillin/Clavulanate Potassium (Augmentin 875 Mg/125 Mg) 1 tab PO Q12HR [facility] Stop: 11/30/17 21:01 Last Admin: 11/19/17 09:36 Dose: 1 tab Bupivacaine HCl (Marcaine 0.5%) Confirm Administered Dose 30 ml .ROUTE .STK-MED ONE Stop: 11/16/17 22:08 Last Admin: 11/16/17 23:04 Dose: 10 ml Diatrizoate Meglum/Diatrizoate Sod (Gastrografin 37%) 90 ml PO ONETIME ONE Stop: 11/16/17 19:43 Last Admin: 11/16/17 20:01 Dose: 90 ml Diphenhydramine HCl (Benadryl) 25 mg IVPUSH Q6H PRN PRN Reason: Pruritis Famotidine (Pepcid) 20 mg IVPUSH ONETIME ONE Stop: 11/16/17 18:19 Last Admin: 11/16/17 18:34 Dose: 20 mg Fentanyl (Sublimaze) Confirm Administered Dose 250 mcg .ROUTE .STK-MED ONE Stop: 11/16/17 22:18 Fentanyl (Sublimaze) Confirm Administered Dose 100 mcg .ROUTE .STK-MED ONE Stop: 11/17/17 00:23 Glycopyrrolate () Confirm Administered Dose 1 mg .ROUTE .STK-MED ONE Stop: 11/17/17 00:27 Heparin Sodium (Porcine) (Heparin Sodium) 5,000 units SUBCUT Q8H [facility] Last Admin: 11/19/17 12:01 Dose: Not Given Hydromorphone HCl (Dilaudid) 1 mg IVPUSH ONETIME ONE Stop: 11/16/17 18:18 Last Admin: 11/16/17 18:35 Dose: 1 mg Hydromorphone HCl (Dilaudid) 0.5 mg IVPUSH ONETIME ONE Stop: 11/16/17 19:15 Last Admin: 11/16/17 19:30 Dose: 0.5 mg Hydromorphone HCl (Dilaudid) 0.5 mg IVPUSH ONETIME ONE Stop: 11/16/17 20:37 Last Admin: 11/16/17 20:42 Dose: 0.5 mg Hydromorphone HCl (Dilaudid) Confirm Administered Dose 0.5 mg .ROUTE .STK-MED ONE Stop: 11/16/17 23:15 Hydromorphone HCl (Dilaudid) Confirm Administered Dose 0.5 mg .ROUTE .STK-MED ONE Stop: 11/16/17 23:15 Hydromorphone HCl (Dilaudid) 0.5 mg IVPUSH ONETIME ONE Stop: 11/17/17 01:17 Last Admin: 11/17/17 09:11 Dose: Not Given Hydromorphone HCl (Dilaudid) 0.5 mg IVPUSH Q2H PRN PRN Reason: Pain Hydromorphone HCl (Dilaudid) 0.5 mg IVPUSH ONETIME PRN PRN Reason: Breakthrough pain Sodium Chloride (Normal Saline) 1,000 mls @ 1,000 mls/hr IV .BOLUS STA Stop: 11/16/17 19:14 Last Admin: 11/16/17 18:33 Dose: 1,000 mls/hr Piperacillin Sod/Tazobactam (Sod 4.5 gm/ Sodium Chloride) 100 mls @ 200 mls/hr IV ONETIME ONE Stop: 11/16/17 22:15 Last Admin: 11/16/17 21:57 Dose: 200 mls/hr Ondansetron HCl 4 mg/ Sodium (Chloride) 52 mls @ 100 mls/hr IV Q4H PRN PRN Reason: Nausea Piperacillin Sod/Tazobactam (Sod 4.5 gm/ Sodium Chloride) 100 mls @ 25 mls/hr IV Q8H [facility] Last Admin: 11/19/17 05:48 Dose: 25 mls/hr Sodium Chloride (Normal Saline) 1,000 mls @ 125 mls/hr IV ASDIRECTED [facility] Last Admin: 11/18/17 01:10 Dose: 125 mls/hr Piperacillin Sod/Tazobactam (Sod 4.5 gm/ Sodium Chloride) 100 mls @ 200 mls/hr IV Q8H [facility] Stop: 11/17/17 03:00 Last Admin: 11/17/17 09:13 Dose: Not Given Metoprolol Tartrate 5 mg/ (Sodium Chloride) 55 mls @ 100 mls/hr IV Q2H PRN PRN Reason: Hypertension Potassium Chloride/Dextrose/Sod Cl (D5 1/2 Ns W/ 20 Meq/L Kcl) 1,000 mls @ 100 mls/hr IV ASDIRECTED [facility] Last Admin: 11/19/17 03:59 Dose: 100 mls/hr Iopamidol (Isovue-300 (61%)) 125 ml IVPUSH ONETIME ONE Stop: 11/16/17 19:43 Last Admin: 11/16/17 20:01 Dose: 125 ml Ketamine HCl (Ketalar) Confirm Administered Dose 500 mg .ROUTE .STK-MED ONE Stop: 11/16/17 23:16 Lidocaine/Epinephrine (Xylocaine 1% With Epinephrine 1:100,000) Confirm Administered Dose 20 ml .ROUTE .STK-MED ONE Stop: 11/16/17 22:08 Last Admin: 11/16/17 23:04 Dose: 10 ml Metoprolol Tartrate (Lopressor) 5 mg IV Q2H PRN PRN Reason: Hypertension Midazolam HCl (Versed 1 Mg/Ml) Confirm Administered Dose 2 mg .ROUTE .STK-MED ONE Stop: 11/16/17 22:18 Neostigmine Methylsulfate (Neostigmine) Confirm Administered Dose 5 mg .ROUTE .STK-MED ONE Stop: 11/17/17 00:27 Ondansetron HCl (Zofran) 4 mg IVPUSH ONETIME ONE Stop: 11/16/17 18:16 Last Admin: 11/16/17 18:33 Dose: 4 mg Ondansetron HCl (Zofran Odt) 4 mg PO ONETIME ONE Stop: 11/16/17 19:19 Last Admin: 11/16/17 19:30 Dose: 4 mg Ondansetron HCl (Zofran) 4 mg IVPUSH ONETIME PRN PRN Reason: Nausea/Vomiting Ondansetron HCl (Zofran) 4 mg IV Q4H PRN PRN Reason: Nausea Pneumococcal 13-Valent Conj Vacc (Prevnar 13) 0.5 ml IM .ONCE ONE Stop: 11/19/17 10:49 Pneumococcal Polyvalent Vaccine (Pneumovax 23) 0.5 ml IM .ONCE ONE Stop: 11/19/17 11:01 Last Admin: 11/19/17 11:23 Dose: 0.5 ml Propofol (Diprivan 20 Ml) Confirm Administered Dose 400 mg .ROUTE .STK-MED ONE Stop: 11/16/17 22:18 Rocuronium [place] (Zemuron) Confirm Administered Dose 50 mg .ROUTE .STK-MED ONE Stop: 11/16/17 23:25 Sodium Chloride (Saline Flush) 10 ml FLUSH ASDIRECTED PRN PRN Reason: Keep Vein Open Last Admin: 11/16/17 18:35 Dose: 10 ml Sodium Chloride (Saline Flush) 10 ml FLUSH ONETIME ONE Stop: 11/16/17 19:43 Last Admin: 11/16/17 20:01 Dose: 10 ml
== END 2017-11-19 11:49 | disposition home or self-care (01) | DRG 339 ==
LOC: JD.ED 17:35 → JD.SDS 21:59 → JD.MS 11-17 00:24
PROVIDERS: ADMIT Student in an Organized Health Care Education/Training Program; ATTEND Student in an Organized Health Care Education/Training Program
PROC: 0D9J40Z Drainage of Appendix with Drainage Device, Percutaneous Endoscopic Approach (ICD-10-PCS; principal; 2017-11-17)
PROC: 3E0234Z Introduction of Serum, Toxoid and Vaccine into Muscle, Percutaneous Approach (ICD-10-PCS; 2017-11-19)
DX: K35.3 Acute appendicitis with localized peritonitis (principal); R11.2 Nausea with vomiting, unspecified; D72.829 Elevated white blood cell count, unspecified; R10.9 Unspecified abdominal pain; Z68.43 Body mass index [BMI] 50.0-59.9, adult; E66.01 Morbid (severe) obesity due to excess calories; F17.210 Nicotine dependence, cigarettes, uncomplicated; Z23 Encounter for immunization
CPT/HCPCS: 36415; 74177; 80053; 81001; 83690; 84484; 85025; 93005; 96361; 96365; 96375; 96376; 99285; A9270; J1170 ×5; J2250; J2405; J2543; J2704; J3010; J3490 ×2; J7030; J7040; J7050 ×2; Q9963; Q9967; 00840; 90732; 94762; 99284; G0009; J1644; J2710; J3480